=== PATIENT | female | born 1980 | race Caucasian/White ===

== ENCOUNTER 2016-10-22 11:55 | Inpatient (IN) | payer OTHER ==
[~2016-10-22] VITALS: Ht 165.1 cm; Wt 82.4 kg
[~2016-10-22 11:55] MED LIST: CEPH-443 PO; FERR240T9; PREN1TAB49
[2016-10-22 14:00] VITALS: Ht 165.1 cm; Wt 82.4 kg
[2016-10-22 14:12] VITALS: BP 116/65; RESP 18
[2016-10-22] MEDS ORDERED: NACL 0.9% 3 ML SYG IV SCH (15:00)
[2016-10-22] MEDS ORDERED: ACETAMINOPHEN 650 MG SUPP PR PRN (15:00)
[2016-10-22] MEDS ORDERED: DOCUSATE SODIUM 100 MG CAP PO PRN (15:00)
[2016-10-22] MEDS ORDERED: ACETAMINOPHEN 325 MG TAB PO PRN (15:00)
[2016-10-22] MEDS: CEFAZOLIN 1 GM/50 ML (PMX) 50 ML IVPB SCH ×2 (15:34→23:40)
[2016-10-22] MEDS: D5W-0.45 NACL + KCL 20 MEQ 1,000 ML IV SCH (15:34)
[2016-10-22] MEDS: CIPROFLOXACIN 400MG/D5W 200 ML IVPB SCH (16:45)
--- NOTE | 2016-10-22 17:21 | HP ---
DATE OF ADMISSION: 10/22/2016 PLUMBING MANAGER: General surgery. CHIEF COMPLAINT: Abdominal pain. HISTORY OF PRESENT ILLNESS: This is a pleasant 36-year-old female with past medical history of chol elithiasis 15 years ago. He had an ERCP with removal of a stone. He does not have any abdominal di scomfort or pain since then, although recently patient has been having abdominal discomfort. She re cently gave to a healthy baby 2 months ago and since then has been having abdominal discomfort since then with exacerbation of abdominal pain for the past 3 to 4 days. Therefore she was seen an d evaluated at [facility] Emergency Room secondary to having right upper quadrant abd ominal pain radiating to her back. The patient feels the pain is very similar to the pain that she has had in the past. She denies having any fever, chills, weight gain or weight loss. Positive for anorexia, vomiting, no diarrhea. No recent travel history. No sick contact. The patient has take n home pain medication which has been unhelpful. Denies any dysuria, hematuria, urgency, incontinen ce. No flank pain or any other discomfort. During the course of the emergency room at [place], abdominal ultrasound was obtained, which demonstrated cholelithiasis with mild gallbladder wall thic kening. Common bile duct upper limits of normal for patient's imaging of 5.6 mm in diameter. Her l abs demonstrate WBC 5.7. LFTs are planned. AST of 80, ALT 141, alkaline phosphatase 82, lipase is normal at 49. The patient was treated with pain medication, IV fluids, Zosyn. Secondary to insuran ce purposes, the patient was transferred to [facility]. At this time, the patien t continues to complain of abdominal discomfort and right upper quadrant nausea. There is no vomiti ng. The patient states that she has not been able to tolerate any food for the past 3 days. PAST MEDICAL AND SURGICAL HISTORY: 1. Cholelithiasis. 2. Choledocholithiasis. 3. Status post endoscopic retrograde cholangiopancreatography 15 years ago. MEDICATIONS: 1. Keflex. 2. Ferrous gluconate. 3. vitamins. ALLERGIES: NO KNOWN DRUG ALLERGIES. FAMILY HISTORY: Noncontributory. SOCIAL HISTORY: Negative x3 for smoking, alcohol, illicit drugs. REVIEW OF SYSTEMS: As above per HPI, otherwise 12 review of systems has been found to be negative. PHYSICAL EXAMINATION: VITAL SIGNS: Temperature 98.5, pulse 71, respiration 18, blood pressure 106/65, oxygen 95% in room air. GENERAL APPEARANCE: The patient is lying in bed comfortably without any distress. She is awake, al ert, oriented. She is able to answer my questions properly. EYES AND ENT: Conjunctivae and lids are normal. Pupils are normal. Extraocular normal. Hearing g rossly normal. Pupils are normal. Oral mucosa is dry. NECK: Supple. Trachea is midline. No lymphadenopathy. RESPIRATORY: Effort is normal. Clear to auscultation bilaterally. CARDIOVASCULAR: Normal S1, S2. Regular rhythm and rate. No murmur, no bruits, no edema. Peripher al pulses and palpable. Capillary refill is normal. CHEST: Normal expansion of thorax during inspiration. GASTROINTESTINAL: Abdomen is soft. Tenderness in the midepigastric and right upper quadrant, posit crystal rebound, no guarding, no rebound tenderness. Positive for Quach sign. NEUROLOGIC: Cranial nerves II through XII are grossly intact. PSYCHIATRIC: Normal judgment and insight. Alert and oriented x3. Mood and affect is normal. LABORATORY WORK AND IMAGING: Negative for protein, ketones, bilirubin, glucose. BMP showed sodium 140, potassium 4.4, chloride 103, bicarbonate 23, BUN 17, creatinine 0.65, glucose 98. Total protei n 7.5, albumin 4.0, calcium 8.9, total bilirubin 0.4, alkaline phosphatase 82, AST 80, ALT 141, GFR greater than 60. Lipase 49. WBC 5.7, hemoglobin 10.8, hematocrit 38, platelets 192. Abdominal ult rasound showed cholelithiasis with mild gallbladder wall thickening in the common bile duct in upper limit, normal for patient's age measure 5.6 cm in diameter. ASSESSMENT AND PLAN: 1. Cholelithiasis with evidence of cholecystitis with a positive Quach sign. General surgery james s been consulted. Patient has been made n.p.o., IV fluid, pain medication and antiemetic medication has been initiated. Will follow up LFTs in a.m. and follow general surgery recommendation for poss ible laparoscopic open cholecystectomy. 2. Transaminitis negative. Lipase is likely secondary to cholelithiasis. At this time, will obtai n stat LFTs secondary to the patient's abdominal ultrasound of the upper limits, common bile duct. Will follow general surgery recommendations. 3. For deep venous thrombosis prophylaxis, on sequential compression devices. 4. For gastrointestinal prophylaxis, Pepcid. We will continue to monitor patient closely. Further recommendations, management and treatment as p er clinical course. Total amount of time was spent for evaluation of patient and admission workup 40 minutes. Dictated By: NOEL HWANG/NTS Conf#: [id number] DID#: [id number]
[2016-10-22 20:04] VITALS: BP 120/75; RESP 20
[2016-10-22] MEDS: ONDANSETRON 4 MG INJ IV PRN (21:01)
[2016-10-22] MEDS: morphine 2 MG INJ IV PRN (21:01)
[2016-10-22 22:08] VITALS: BP 161/92; RESP 20
[2016-10-23] VITALS (15 sets, daily range): BP systolic 118–162; BP diastolic 63–82; PULSE 60–80; RESP 12–20
[2016-10-23] MEDS: D5W-0.45 NACL + KCL 20 MEQ 1,000 ML IV SCH ×2 (04:10→10:11)
[2016-10-23] MEDS: CIPROFLOXACIN 400MG/D5W 200 ML IVPB SCH ×3 (04:31→18:50)
[2016-10-23 05:53] LABS: BASOPHILS % 0.4 % (0.0-2.0); EOSINOPHILS # 0.1 10^3/ul (0.0-0.5); EOSINOPHILS % 1.7 % (0.0-7.0); HEMATOCRIT 34.2 % (37.0-47.0); HEMOGLOBIN 11.6 g/dl (12.0-16.0); LYMPHOCYTES # 1.2 10^3/ul (0.8-2.9); MEAN CORPUSCULAR HEMOGLOBIN 28.8 pg (29.0-33.0); MEAN CORPUSCULAR HGB CONC 34.1 g/dl (32.0-37.0); MEAN CORPUSCULAR VOLUME 84.4 fl (82.0-101.0); MEAN PLATELET VOLUME 8.9 fl (7.4-10.4); MONOCYTE # 0.2 10^3/ul (0.3-0.9); MONOCYTES % 6.7 % (0.0-11.0); NEUTROPHIL # 1.9 10^3/ul (1.6-7.5); NEUTROPHILS % 56.2 % (39.0-77.0); PLATELET COUNT 167 10^3/UL (140-440); RED BLOOD COUNT 4.04 10^6/ul (4.20-5.40); RED CELL DISTRIBUTION WIDTH 13.9 % (11.5-14.5); UNCORRECTED WBC 3.4 10^3/ul (4.8-10.8); WHITE BLOOD COUNT 3.4 10^3/ul (4.8-10.8)
[2016-10-23 05:57] LABS: CONDITION 1
[2016-10-23 06:08] LABS: ALBUMIN 3.6 g/dl (3.3-4.9)
[2016-10-23 06:09] LABS: POTASSIUM 4.3 mmol/L (3.5-5.1)
[2016-10-23 06:11] LABS: CREATININE 0.63 mg/dl (0.44-1.00)
[2016-10-23 06:12] LABS: ALBUMIN/GLOBULIN RATIO 1.12; BILIRUBIN,INDIRECT 0.4 mg/dl (0-1.1); BILIRUBIN,TOTAL 0.4 mg/dl (0.2-1.3); CALCIUM 8.4 mg/dl (8.4-10.2); TOTAL PROTEIN 6.8 g/dl (6.1-8.1)
[2016-10-23 06:13] LABS: MAGNESIUM 1.9 mg/dl (1.7-2.5)
[2016-10-23] MEDS: CEFAZOLIN 1 GM/50 ML (PMX) 50 ML IVPB SCH ×3 (06:39→22:16)
[2016-10-23] MEDS: PANTOPRAZOLE 40 MG INJ IV SCH (06:39)
[2016-10-23] MEDS: morphine 2 MG INJ IV PRN ×3 (07:00→21:49)
[2016-10-23] MEDS: ONDANSETRON 4 MG INJ IV PRN ×4 (07:00→21:49)
--- NOTE | 2016-10-23 11:31 | PN ---
Date/Time of Note Date/Time of Note DATE: 10/23/16 TIME: 11:23 Assessment/Plan VTE Prophylaxis VTE Prophylaxis Intervention: SCD's Lines/Catheters IV Catheter Type (from Nrsg): Peripheral IV Assessment/Plan Assessment/Plan 1. Cholelithiasis with evidence of cholecystitis with a positive Quach sign. Dr. Montero for lap cholecystectomy today 2. Transaminitis, mildly, normal Alk phos, follow up with LFTs 3. For deep venous thrombosis prophylaxis, on sequential compression devices. 4. For gastrointestinal prophylaxis, protonix Subjective 24 Hr Interval Summary Free Text/Dictation less abdominal pain today, nausea but no vomiting Exam/Review of Systems Vital Signs Vitals Vital Signs Date Time Temp Pulse Resp B/P Pulse Ox O2 Delivery O2 Flow Rate FiO2 10/23/16 07:53 98.2 65 18 122/68 96 Intake and Output 10/22/16 10/22/16 10/23/16 15:00 23:00 07:00 Intake Total 250 ml 850 ml Balance 250 ml 850 ml Exam Constitutional: alert, oriented, well developed Psych: nl mood/affect, no complaints Head: atraumatic, normocephalic Eyes: EOMI, PERRL, nl conjunctiva, nl lids, nl sclera ENMT: nl external ears & nose, nl lips & teeth, nl nasal mucosa & septum Neck: non-tender, supple Respiratory: clear to auscultation, normal air movement Cardiovascular: nl pulses, regular rate and rhythm Gastrointestinal: nl liver, spleen, other (right upper and epigastric tenderness), soft Musculoskeletal: nl extremities to inspection, nl gait and stance Extremities: normal pulses Neurological: [employer] SALES ASSESSOR II-XII intact, nl mental status, nl speech, nl strength Skin: nl turgor, rash or lesions Lymph: nl lymph nodes Results Result Diagram: 10/23/1652510/23/16 0526 Results 24 hrs Laboratory Tests Test 10/23/16 05:26 Alanine Aminotransferase (ALT/SGPT) 144 H Albumin 3.6 Albumin/Globulin Ratio 1.12 Alkaline Phosphatase 69 Anion Gap 11 Aspartate Amino Transf (AST/SGOT) 87 H Basophils # 0.0 Basophils % 0.4 Blood Morphology Comment Blood Urea Nitrogen 7 Calcium Level 8.4 Carbon Dioxide Level 28 Chloride Level 105 Cholesterol Level 191 Cholesterol/HDL Ratio 5.0 Creatinine 0.63 Direct Bilirubin 0.00 Eosinophils # 0.1 Eosinophils % 1.7 Globulin 3.20 Glucose Level 109 HDL Cholesterol 38 Hematocrit 34.2 #L Hemoglobin 11.6 #L Indirect Bilirubin 0.4 LDL Cholesterol, Calculated 121 Lymphocytes # 1.2 Lymphocytes % 35.0 Magnesium Level 1.9 Mean Corpuscular Hemoglobin 28.8 L Mean Corpuscular Hemoglobin Concent 34.1 Mean Corpuscular Volume 84.4 Mean Platelet Volume 8.9 Monocytes # 0.2 L Monocytes % 6.7 Neutrophils # 1.9 Neutrophils % 56.2 Nucleated Red Blood Cells # 0.0 Nucleated Red Blood Cells % 0.0 Platelet Count 167 # Potassium Level 4.3 Red Blood Count 4.04 #L Red Cell Distribution Width 13.9 Sodium Level 140 Total Bilirubin 0.4 Total Protein 6.8 Triglycerides Level 160 H White Blood Count 3.4 #L Medications Medications Current Medications Potassium Chloride/Dextrose/ Sod Cl (D5-1/2ns + KCl 20 Meq) 1,000 ml @ 75 mls/ hr [id number] IV Last administered on 10/23/16 10:11; Admin Dose 75 MLS/HR; Start 10/22/16 at 14:50 Ondansetron HCl (Zofran Inj) 4 mg Q6H PRN IV NAUSEA AND/OR VOMITING Last administered on 10/23/16 07:00; Admin Dose 4 MG; Start 10/22/16 at 15:00 Acetaminophen (Tylenol Tab) 650 mg Q6H PRN PO PAIN LEVEL 1-3 OR FEVER Last administered on 10/22/16 15:35; Admin Dose 650 MG; Start 10/22/16 at 15:00 Acetaminophen (Tylenol Supp) 650 mg Q6H PRN [place] PAIN LEVEL 1-3 OR FEVER; Start 10/22/16 at 15:00 Morphine Sulfate (morphine) 2 mg Q4H PRN IV SEVERE PAIN LEVEL 7-10 Last administered on 10/23/16 07:00; Admin Dose 2 MG; Start 10/22/16 at 15:00 Docusate Sodium (Colace) 100 mg Q12H PRN PO CONSTIPATION; Start 10/22/16 at 15: 00 Pantoprazole 40 mg 40 mg DAILY@06 IV Last administered on 10/23/16 06:39; Admin Dose 40 MG; Start 10/23/16 at 06:00 Cefazolin Sodium 50 ml @ 100 mls/hr Q8 IVPB Last administered on 10/23/16 06: 39; Admin Dose 100 MLS/HR; Start 10/22/16 at 15:30 Ciprofloxacin/ Dextrose (Cipro Ivpb) 200 ml @ 200 mls/hr Q12H IVPB Last administered on 10/23/16 04:31; Admin Dose 200 MLS/HR; Start 10/22/16 at 16:00 REBECA ARCE MD Oct 23, 2016 11:31
[2016-10-23] MEDS ORDERED: FENTAnyl 50 MCG/ML VIAL IV PRN (15:30)
[2016-10-23] MEDS ORDERED: DIPHENHYDRAMINE 50 MG INJ IV PRN (15:30)
[2016-10-23] MEDS ORDERED: MEPERIDINE 25 MG INJ IV PRN (15:30)
[2016-10-23] MEDS ORDERED: HYDROmorphONE (0.2 MG/ML) 10ML SYG IV PRN ×3 (15:30)
[2016-10-23] MEDS ORDERED: PROCHLORPERAZINE 10 MG INJ IV PRN (15:30)
[2016-10-23] MEDS ORDERED: ONDANSETRON 4 MG INJ IV PRN (15:30)
[2016-10-23] MEDS ORDERED: BUPIVACAINE 0.25%/EPI (SDV) 30 ML INJ ONE (15:52)
[2016-10-23] MEDS ORDERED: LIDOCAINE 1% (STERILE-PAK) 30 ML INJ ONE (15:52)
[2016-10-23] MEDS ORDERED: PROPOFOL 20 ML ONE ×2 (16:30→16:50)
[2016-10-23] MEDS ORDERED: LIDOCAINE 2% (SDV) 5 ML INJ ONE (16:30)
[2016-10-23] MEDS ORDERED: MIDAZOLAM 1 MG/ML 2 ML INJ ONE (16:30)
[2016-10-23] MEDS ORDERED: FENTAnyl 50 MCG/ML VIAL ONE (16:30)
[2016-10-23] MEDS ORDERED: SUCCINYLCHOLINE CHLORIDE 100 MG/5 ML SYG IV ONE (16:30)
[2016-10-23] MEDS ORDERED: ROCURONIUM 50 MG INJ ONE (16:30)
[2016-10-23] MEDS ORDERED: CEFAZOLIN 1 GM INJ ONE (16:47)
[2016-10-23] MEDS ORDERED: GLYCOPYRROLATE 0.4 MG INJ ONE (16:49)
[2016-10-23] MEDS ORDERED: NEOSTIGMINE 3 MG/3 ML SYRINGE ONE (16:49)
[2016-10-23] MEDS ORDERED: DEXAMETHASONE 4 MG/ML 1 ML INJ ONE (16:50)
[2016-10-23] MEDS ORDERED: HYDROmorphONE 2 MG/ML SYG ONE (16:50)
[2016-10-23] MEDS ORDERED: ONDANSETRON 4 MG INJ ONE (16:50)
[2016-10-23] MEDS ORDERED: FAMOTIDINE 20 MG INJ ONE (16:50)
[2016-10-23] MEDS ORDERED: EPHEDrine SULFATE 50 MG/5 ML SYG ONE (16:55)
--- NOTE | 2016-10-23 17:24 | CONS ---
DATE OF ADMISSION: 10/22/2016 DATE OF CONSULTATION: 10/23/2016 HISTORY OF PRESENT ILLNESS: Mr. Pang is a 36-year-old female who presented to an outside hospit al yesterday with nausea, emesis and abdominal pain for 2 days. She has had prior episodes of bilia ry colic, which have improved on their own. This was more severe with the most pain and also with n o improvement after 2 days. She did have an ERCP for common bile duct stone 15 years ago. The ultr asound was concerning for cholecystitis and she was transferred to [facility]. PAST MEDICAL HISTORY: Cholelithiasis, choledocholithiasis, status post ERCP. MEDICATIONS: None. ALLERGIES: NO KNOWN DRUG ALLERGIES. SOCIAL HISTORY: She smokes. She denies drinking. PAST SURGICAL HISTORY: Noncontributory. PHYSICAL EXAMINATION: GENERAL: She is a well-nourished, well-developed female in no apparent distress, currently afebrile . VITAL SIGNS: Stable. CHEST: Clear to auscultation bilaterally. HEART: Regular rhythm. ABDOMEN: Soft, nondistended but some right upper quadrant tenderness. LABORATORY DATA: Today reveal a white count of 3, hematocrit 34, platelets 167. Sodium 140, potass ium 4.3, chloride 105, CO2 28, BUN and creatinine 7 and 0.6, glucose of 109. LFTs are within normal limits. An outside ultrasound was consistent with cholelithiasis and cholecystitis. ASSESSMENT AND PLAN: Ms. Pang is a 36-year-old female with biliary colic versus cholecystitis. I discussed proceeding with a laparoscopic, possible open cholecystectomy, possible cholangiogram o n this admission. All benefits, risks, alternatives were discussed in detail. Questions answered. Patient elects to proceed. Dictated By: SAUL KELLY/HANY Conf#: [id number] DID#: [id number]
[2016-10-23] MEDS: D5-NS + KCL 20 MEQ 1,000 ML IV SCH ×2 (17:31→18:50)
[2016-10-23] MEDS ORDERED: IBUPROFEN 600 MG TAB PO PRN (18:00)
[2016-10-23] MEDS ORDERED: KETOROLAC 30 MG INJ IV ONE (18:00)
[2016-10-23] MEDS: KETOROLAC 15 MG INJ IV SCH ×2 (18:00→23:15)
[2016-10-23] MEDS ORDERED: ACETAMINOPHEN 325 MG TAB PO PRN (18:00)
[2016-10-23] MEDS ORDERED: morphine 2 MG INJ IV PRN (18:00)
--- NOTE | 2016-10-23 18:07 | OPR ---
DATE OF OPERATION: 10/23/2016 PREOPERATIVE DIAGNOSIS: Acute cholecystitis. POSTOPERATIVE DIAGNOSIS: Acute cholecystitis. PROCEDURE PERFORMED: Laparoscopic cholecystectomy. SURGEON: Saul Vuong MD BRAZER ELECTRONIC: None. ANESTHESIA: General endotracheal. ANESTHESIOLOGIST: Dr. Kent ESTIMATED BLOOD LOSS: Minimal. COMPLICATIONS: None. SPECIMENS: Gallbladder. FINDINGS: Thickened gallbladder with very large stone. INDICATIONS: Ms. Pang is a 36-year-old female who has had intermittent biliary colic on and off for quite some time. She presented to [facility] with signs and symptoms consistent with acute cholecystitis. I discussed proceeding with a laparoscopic, possible open cholecystectomy, pos sible cholangiogram. The patient agreed. We discussed All benefits, risks, alternatives were discu ssed in detail, questions answered. The patient elected to proceed. DESCRIPTION OF PROCEDURE: Patient was brought to the operative room and placed supine on the table. After preop antibiotics and SCDs were placed, the patient was intubated and the abdomen was cleane d, prepped and draped in usual sterile fashion. All incisions were infiltrated with 1% lidocaine wi th epinephrine and 0.5% Marcaine prior to incision. An 11 mm incision was made in the umbilicus. U sing a 5 mm laparoscope containing trocar, the abdomen was entered under direct vision and insufflat ed to 15 mmHg and CO2. The following trocars were then placed under direct vision: right lower rosalinda drant 5 mm with a right upper quadrant 5 mm and subxiphoid 5 mm trocar. The gallbladder was distend ed and edematous, consistent with acute cholecystitis. There was a very large stone in the fundus. I was able to identify the Babak's pouch and retract it laterally. I scored the peritoneum medi ally and laterally underneath Babak's pouch and was able to dissect out and skeletonize the cysti c duct and artery. I then dissected the gallbladder off the cystic plate of the liver and thus had my critical view of safety ____liver edge duct and artery with no intervening structures. I clipped both the duct and artery twice proximally and once distally individually and divided the cystic maurizio t and cystic artery. The gallbladder was then removed from the gallbladder fossa with electrocauter y, placed in an EndoCatch bag and removed from the 12 mm trocar site. I visualized my gallbladder f aurelia. I irrigated and aspirated until effluent was clear. The gallbladder fossa was hemostatic. A t this point, I removed all trocars and desufflated the abdomen. The fascia of the 12 mm trocar sit e was closed with a running 0 Vicryl. Skin incisions were closed with 4-0 Monocryl, Mastisol and St sebas-Strips, 2 x 2 gauze and Tegaderm was placed over the umbilical incision only. The patient sugar ated procedure well, was extubated in the OR and transferred to recovery room in stable condition. Dictated By: SAUL KELLY/HANY Conf#: [id number] DID#: [id number]
[2016-10-23] MEDS: PIPER-TAZO 3.375 GM IV (PMX) 100 ML IVPB SCH ×2 (21:40→23:15)
[2016-10-24] MEDS: morphine 2 MG INJ IV PRN ×2 (01:33→06:59)
[2016-10-24] MEDS: CIPROFLOXACIN 400MG/D5W 200 ML IVPB SCH (04:35)
[2016-10-24] MEDS: D5-NS + KCL 20 MEQ 1,000 ML IV SCH ×4 (04:37→23:31)
[2016-10-24] MEDS: PANTOPRAZOLE 40 MG INJ IV SCH (05:58)
[2016-10-24] MEDS: KETOROLAC 15 MG INJ IV SCH ×3 (05:58→17:35)
[2016-10-24] MEDS: PIPER-TAZO 3.375 GM IV (PMX) 100 ML IVPB SCH ×3 (05:58→17:36)
[2016-10-24] MEDS: CEFAZOLIN 1 GM/50 ML (PMX) 50 ML IVPB SCH (06:37)
[2016-10-24 06:48] LABS: HEMATOCRIT 31.4 % (37.0-47.0); HEMOGLOBIN 10.8 g/dl (12.0-16.0); LYMPHOCYTES # 0.7 10^3/ul (0.8-2.9); LYMPHOCYTES % 10.4 % (15.0-51.0); MEAN CORPUSCULAR HGB CONC 34.3 g/dl (32.0-37.0); MEAN CORPUSCULAR VOLUME 84.5 fl (82.0-101.0); MEAN PLATELET VOLUME 9.4 fl (7.4-10.4); MONOCYTE # 0.4 10^3/ul (0.3-0.9); MONOCYTES % 5.9 % (0.0-11.0); NEUTROPHIL # 5.3 10^3/ul (1.6-7.5); NEUTROPHILS % 83.7 % (39.0-77.0); PLATELET COUNT 171 10^3/UL (140-440); RED BLOOD COUNT 3.72 10^6/ul (4.20-5.40); RED CELL DISTRIBUTION WIDTH 13.7 % (11.5-14.5); UNCORRECTED WBC 6.3 10^3/ul (4.8-10.8); WHITE BLOOD COUNT 6.3 10^3/ul (4.8-10.8)
[2016-10-24 06:56] LABS: ALBUMIN 3.5 g/dl (3.3-4.9)
[2016-10-24 06:58] LABS: CONDITION 1
[2016-10-24 06:59] LABS: ALBUMIN/GLOBULIN RATIO 1.12; BILIRUBIN,INDIRECT 0.3 mg/dl (0-1.1); BILIRUBIN,TOTAL 0.3 mg/dl (0.2-1.3); CREATININE 0.6 mg/dl (0.44-1.00); TOTAL PROTEIN 6.6 g/dl (6.1-8.1)
[2016-10-24 07:00] LABS: CALCIUM 8.4 mg/dl (8.4-10.2)
[2016-10-24 08:03] VITALS: BP 121/58; RESP 16
[2016-10-24] MEDS: ENOXAPARIN 40 MG/0.4 ML SYG SC SCH (08:28)
[2016-10-24] MEDS: OXYCODONE/ACETAMINOPHEN (5/325) TAB PO PRN ×2 (08:32→18:53)
--- NOTE | 2016-10-24 12:44 | DS ---
Date/Time of Note Date/Time of Note DATE: 10/24/16 TIME: 12:40 Discharge Summary Admission/Discharge Info Admit Date/Time Oct 22, 2016 at 13:44 Discharge Date/Time Final Diagnosis 1. Cholelithiasis with acute cholecystitis, stable , follow up with Dr. Montero Patient Condition: Stable Procedures lap cholecystectomy Hx of Present Illness This is a pleasant 36-year-old female with past medical history of cholelithiasis 15 years ago. He had an ERCP with removal of a stone. He does not have any abdominal discomfort or pain since then, although recently patient has been having abdominal discomfort. She recently gave to a healthy baby 2 months ago and since then has been having abdominal discomfort since then with exacerbation of abdominal pain for the past 3 to 4 days. Therefore she was seen and evaluated at [facility] Emergency Room secondary to having right upper quadrant abdominal pain radiating to her back. The patient feels the pain is very similar to the pain that she has had in the past. She denies having any fever, chills, weight gain or weight loss. Positive for anorexia, vomiting, no diarrhea. No recent travel history. No sick contact. The patient has taken home pain medication which has been unhelpful. Denies any dysuria, hematuria, urgency, incontinence. No flank pain or any other discomfort. During the course of the emergency room at [place], abdominal ultrasound was obtained, which demonstrated cholelithiasis with mild gallbladder wall thickening. Common bile duct upper limits of normal for patient's imaging of 5.6 mm in diameter. Her labs demonstrate WBC 5.7. LFTs are planned. AST of 80, ALT 141, alkaline phosphatase 82, lipase is normal at 49. The patient was treated with pain medication, IV fluids, Zosyn. Secondary to insurance purposes, the patient was transferred to [facility]. At this time, the patient continues to complain of abdominal discomfort and right upper quadrant nausea. There is no vomiting. The patient states that she has not been able to tolerate any food for the past 3 days. Hospital Course Physical exam with RAUQ abdominal tenderness. Patient was treated with antibiotics and got lap cholecystectomy on 10/23/2016. Patient tolerates diet. She will follow up with surgery in his office, in one week. Home Meds Reported Medications Cephalexin* (Keflex*) 500 Mg Capsule, 500 MG PO BID, #14 CAP 7/15/16 Ferrous Gluconate (Iron) 1 Tab Tablet 11/14/10 Vits W-Ca,Fe,Fa(<1MG) () 1 Tab Tablet 11/14/10 Follow-up Plan Dr. Vuong one week Pending Labs Laboratory Tests Test 10/24/16 05:30 Alanine Aminotransferase (ALT/SGPT) 142IU/L (13-69) Albumin 3.5g/dl (3.3-4.9) Albumin/Globulin Ratio 1.12 Alkaline Phosphatase 68IU/L (42-121) Anion Gap 14 (8-16) Aspartate Amino Transf (AST/SGOT) 113IU/L (15-46) Basophils # 0.010^3/ul (0.0-0.1) Basophils % 0.0% (0.0-2.0) Blood Morphology Comment Blood Urea Nitrogen 8mg/dl (7-20) Calcium Level 8.4mg/dl (8.4-10.2) Carbon Dioxide Level 25mmol/L (21-31) Chloride Level 106mmol/L (97-110) Creatinine 0.60mg/dl (0.44-1.00) Direct Bilirubin 0.00mg/dl (0.00-0.20) Eosinophils # 0.010^3/ul (0.0-0.5) Eosinophils % 0.0% (0.0-7.0) Globulin 3.10g/dl (1.3-3.2) Glucose Level 131mg/dl (70-220) Hematocrit 31.4% (37.0-47.0) Hemoglobin 10.8g/dl (12.0-16.0) Indirect Bilirubin 0.3mg/dl (0-1.1) Lymphocytes # 0.710^3/ul (0.8-2.9) Lymphocytes % 10.4% (15.0-51.0) Mean Corpuscular Hemoglobin 29.0pg (29.0-33.0) Mean Corpuscular Hemoglobin Concent 34.3g/dl (32.0-37.0) Mean Corpuscular Volume 84.5fl (82.0-101.0) Mean Platelet Volume 9.4fl (7.4-10.4) Monocytes # 0.410^3/ul (0.3-0.9) Monocytes % 5.9% (0.0-11.0) Neutrophils # 5.310^3/ul (1.6-7.5) Neutrophils % 83.7% (39.0-77.0) Nucleated Red Blood Cells # 0.010^3/ul (0.0-0.0) Nucleated Red Blood Cells % 0.0/100WBC (0.0-0.0) Platelet Count 60620^3/UL (140-440) Potassium Level 4.0mmol/L (3.5-5.1) Red Blood Count 3.7210^6/ul (4.20-5.40) Red Cell Distribution Width 13.7% (11.5-14.5) Sodium Level 141mmol/L (135-144) Total Bilirubin 0.3mg/dl (0.2-1.3) Total Protein 6.6g/dl (6.1-8.1) White Blood Count 6.310^3/ul (4.8-10.8) REBECA ARCE MD Oct 24, 2016 12:44
[2016-10-24] MEDS ORDERED: HYDR-3498 PO (12:46)
[2016-10-24] MEDS: HYDROCODONE/APAP (5/325) TAB PO PRN (16:27)
[2016-10-24 19:00] VITALS: BP 144/79; RESP 18
[2016-10-25] MEDS: PIPER-TAZO 3.375 GM IV (PMX) 100 ML IVPB SCH ×3 (00:01→13:11)
[2016-10-25] MEDS: KETOROLAC 15 MG INJ IV SCH ×3 (00:01→13:10)
[2016-10-25] MEDS: D5-NS + KCL 20 MEQ 1,000 ML IV SCH (05:55)
[2016-10-25] MEDS: PANTOPRAZOLE 40 MG INJ IV SCH (05:56)
[2016-10-25] MEDS: OXYCODONE/ACETAMINOPHEN (5/325) TAB PO PRN (06:05)
[2016-10-25] MEDS: ENOXAPARIN 40 MG/0.4 ML SYG SC SCH (06:13)
[2016-10-25 07:42] VITALS: BP 136/73; RESP 18
[2016-10-25] MEDS: morphine 2 MG INJ IV PRN (10:56)
--- NOTE | 2016-10-25 12:06 | DS ---
Date/Time of Note Date/Time of Note DATE: 10/25/16 TIME: 12:02 Discharge Summary Admission/Discharge Info Admit Date/Time Oct 22, 2016 at 13:44 Discharge Date/Time Final Diagnosis 1. Cholelithiasis with acute cholecystitis, stable , follow up with Dr. Montero Patient Condition: Stable Procedures lap cholecystectomy Hx of Present Illness This is a pleasant 36-year-old female with past medical history of cholelithiasis 15 years ago. He had an ERCP with removal of a stone. He does not have any abdominal discomfort or pain since then, although recently patient has been having abdominal discomfort. She recently gave to a healthy baby 2 months ago and since then has been having abdominal discomfort since then with exacerbation of abdominal pain for the past 3 to 4 days. Therefore she was seen and evaluated at [facility] Emergency Room secondary to having right upper quadrant abdominal pain radiating to her back. The patient feels the pain is very similar to the pain that she has had in the past. She denies having any fever, chills, weight gain or weight loss. Positive for anorexia, vomiting, no diarrhea. No recent travel history. No sick contact. The patient has taken home pain medication which has been unhelpful. Denies any dysuria, hematuria, urgency, incontinence. No flank pain or any other discomfort. During the course of the emergency room at [place], abdominal ultrasound was obtained, which demonstrated cholelithiasis with mild gallbladder wall thickening. Common bile duct upper limits of normal for patient's imaging of 5.6 mm in diameter. Her labs demonstrate WBC 5.7. LFTs are planned. AST of 80, ALT 141, alkaline phosphatase 82, lipase is normal at 49. The patient was treated with pain medication, IV fluids, Zosyn. Secondary to insurance purposes, the patient was transferred to [facility]. At this time, the patient continues to complain of abdominal discomfort and right upper quadrant nausea. There is no vomiting. The patient states that she has not been able to tolerate any food for the past 3 days. Hospital Course Physical exam with RAUQ abdominal tenderness. Patient was treated with antibiotics and got lap cholecystectomy on 10/23/2016. Patient tolerates diet. She will follow up with surgery in his office, in one week. Patient was discharged on 10/24/2016, but she complained lots of abdominal pain yesterday that is better today. Home Meds Active Scripts Hydrocodone Bit-Acetaminophen (Hydrocodone Bit-APAP) 5-325MG Tablet, 1 TAB PO Q6H Y for PAIN LEVEL 6-10, #25 TAB Prov:REBECA ARCE MD 10/24/16 Reported Medications Ferrous Gluconate (Iron) 1 Tab Tablet 11/14/10 Vits W-Ca,Fe,Fa(<1MG) () 1 Tab Tablet 11/14/10 Discontinued Reported Medications Cephalexin* (Keflex*) 500 Mg Capsule, 500 MG PO BID, #14 CAP 04/26/16 Follow-up Plan Dr. Vuong in one week REBECA ARCE MD Oct 25, 2016 12:05
[2016-10-25] MEDS: METOCLOPRAMIDE 5 MG TAB PO SCH ×2 (13:10→16:56)
[2016-10-25] MEDS: HYDROCODONE/APAP (5/325) TAB PO PRN (16:56)
[2016-10-25] MEDS: ONDANSETRON 4 MG INJ IV PRN (16:56)
== END 2016-10-25 19:00 | disposition home or self-care (01) | DRG 419 ==
LOC: MS2 13:44
PROVIDERS: ADMIT Family Medicine; ATTEND Family Medicine
PROC: 0FT44ZZ Resection of Gallbladder, Percutaneous Endoscopic Approach (ICD-10-PCS; principal; 2016-10-23 16:00)
DX: K80.00 Calculus of gallbladder with acute cholecystitis without obstruction (principal); R74.0 Nonspecific elevation of levels of transaminase and lactic acid dehydrogenase [LDH]
CPT/HCPCS: 80053; 80061; 83735; 85025; 88304; C9113; J0330; J0690; J0744; J1100; J1170; J1650; J1885; J2250; J2270; J2405; J2543; J2710; J3010; J3480

== ENCOUNTER 2016-11-02 22:58 | Inpatient (IN) | payer OTHER ==
[~2016-11-02] VITALS: Ht 165.1 cm; Wt 81.3 kg
[~2016-11-02 22:58] MED LIST changes: -CEPH-443 PO; +HYDR-3498 PO
[2016-11-02] MEDS ORDERED: ONDANSETRON 4 MG INJ IV STA (23:38)
[2016-11-02] MEDS ORDERED: morphine 4 MG/ML VIAL IV STA (23:38)
[2016-11-03 00:06] LABS: ALBUMIN 4.2 g/dl (3.3-4.9)
[2016-11-03 00:07] LABS: POTASSIUM 4.8 mmol/L (3.5-5.1)
[2016-11-03 00:09] LABS: BILIRUBIN,INDIRECT 0.1 mg/dl (0-1.1); BILIRUBIN,TOTAL 0.1 mg/dl (0.2-1.3); CREATININE 0.63 mg/dl (0.44-1.00)
[2016-11-03 00:10] LABS: ALBUMIN/GLOBULIN RATIO 1.13; CALCIUM 9.6 mg/dl (8.4-10.2); TOTAL PROTEIN 7.9 g/dl (6.1-8.1)
--- NOTE | 2016-11-03 00:49 | RADRPT ---
PROCEDURE: Chest. CLINICAL INDICATION: Chest pain. TECHNIQUE: Single frontal view of the chest was obtained. COMPARISON: None. FINDINGS: The cardiac silhouette is within normal limits. The aortic arch is unremarkable. There is no focal consolidation, vascular congestion or pleural effusion. There is no pneumothorax. IMPRESSION: No evidence for active cardiopulmonary disease. .Robbie Gordon MD, MD Date Time Electronically viewed and signed by .Robbie Gordon MD, on 11/03/2016 00:48 .T/
[2016-11-03 01:00] VITALS: TEMP 98.2
[2016-11-03] MEDS ORDERED: ONDANSETRON 4 MG INJ IV PRN (01:00)
[2016-11-03] MEDS ORDERED: ACETAMINOPHEN 325 MG TAB PO PRN (01:00)
[2016-11-03 01:01] LABS: BASOPHILS % 0.5 % (0.0-2.0); EOSINOPHILS # 0.1 10^3/ul (0.0-0.5); HEMATOCRIT 36.5 % (37.0-47.0); HEMOGLOBIN 12.3 g/dl (12.0-16.0); LYMPHOCYTES # 1.6 10^3/ul (0.8-2.9); LYMPHOCYTES % 20.3 % (15.0-51.0); MEAN CORPUSCULAR HEMOGLOBIN 28.3 pg (29.0-33.0); MEAN CORPUSCULAR HGB CONC 33.6 g/dl (32.0-37.0); MEAN PLATELET VOLUME 9.4 fl (7.4-10.4); MONOCYTE # 0.5 10^3/ul (0.3-0.9); MONOCYTES % 5.8 % (0.0-11.0); NEUTROPHIL # 5.6 10^3/ul (1.6-7.5); NEUTROPHILS % 72.4 % (39.0-77.0); PLATELET COUNT 266 10^3/UL (140-440); RED BLOOD COUNT 4.34 10^6/ul (4.20-5.40); RED CELL DISTRIBUTION WIDTH 13.6 % (11.5-14.5); UNCORRECTED WBC 7.8 10^3/ul (4.8-10.8); WHITE BLOOD COUNT 7.8 10^3/ul (4.8-10.8)
[2016-11-03 01:07] LABS: CONDITION 1
[2016-11-03 02:05] VITALS: BP 115/66; RESP 16
[2016-11-03 02:12] VITALS: Ht 165.1 cm; Wt 81.3 kg
[2016-11-03] MEDS: DEXTROSE 5%-0.45% NACL 1,000 ML IV SCH ×3 (03:22→23:00)
--- NOTE | 2016-11-03 04:54 | ERA ---
ER Documentation Chief Complaint Date/Time DATE: 11/03/16 TIME: 04:53 Chief Complaint sp cholecystectomy 4 days ago, c/o upper abd pain x 3 days HPI 36-year-old female status post laparoscopic cholecystectomy 10/23/2016 by presenting with severe epigastric pain. Patient states that she has had pain since her surgery but not very severe. It was easily controlled with Percocet and ibuprofen. However yesterday, she suddenly got severe epigastric pain, aching and stabbing, nonradiating, associated with nausea but no vomiting. She has had some constipation since her surgery. No fevers, chills. ROS All systems reviewed and are negative except as per history of present illness. Medications Home Meds Active Scripts Hydrocodone Bit-Acetaminophen (Hydrocodone Bit-APAP) 5-325MG Tablet, 1 TAB PO Q6H Y for PAIN LEVEL 6-10, #25 TAB Prov:REBECA ARCE MD 10/24/16 Reported Medications Ferrous Gluconate (Iron) 1 Tab Tablet 11/14/10 Vits W-Ca,Fe,Fa(<1MG) () 1 Tab Tablet 11/14/10 Allergies Allergies: Coded Allergies: No Known Drug Allergies (Verified Allergy, Mild, 08/09/16) PMhx/Soc History of Surgery: Yes (cholecystectomy 10/2016) Anesthesia Reaction: No Hx Neurological Disorder: No Hx Respiratory Disorders: No Hx Cardiac Disorders: No Hx Psychiatric Problems: No Hx Miscellaneous Medical Probl: No Hx Alcohol Use: No Hx Substance Use: No Hx Tobacco Use: Yes (cigarettes 2 per day) Smoking Status: Current some day smoker FmHx Family History: No diabetes Physical Exam Vitals Vital Signs Date Time Temp Pulse Resp B/P Pulse Ox O2 Delivery O2 Flow Rate FiO2 11/02/16 23:02 98.2 74 20 152/95 100 Physical Exam Const: Hunched over in bed, unable to lay flat secondary to pain, in moderate distress secondary to pain, nontoxic Head: Atraumatic Eyes: Normal Conjunctiva ENT: Normal External Ears, Nose and Mouth. Neck: Full range of motion. No meningismus. Resp: Clear to auscultation bilaterally Cardio: Regular rate and rhythm, no murmurs Abd: Soft, moderately tender to palpation epigastrium, non distended. Normal bowel sounds Skin: No petechiae or rashes Back: No midline or flank tenderness Ext: No cyanosis, or edema Neur: Awake and alert Psych: Normal Mood and Affect Result Diagram: 11/02/16 8204 11/02/16 2354 Results 24 hrs Laboratory Tests Test 11/02/16 23:54 Alanine Aminotransferase (ALT/SGPT) 150IU/L Albumin 4.2g/dl Albumin/Globulin Ratio 1.13 Alkaline Phosphatase 171IU/L Anion Gap 20 Aspartate Amino Transf (AST/SGOT) 220IU/L Basophils # 0.010^3/ul Basophils % 0.5% Blood Morphology Comment Blood Urea Nitrogen 14mg/dl Calcium Level 9.6mg/dl Carbon Dioxide Level 29mmol/L Chloride Level 100mmol/L Creatinine 0.63mg/dl Direct Bilirubin 0.00mg/dl Eosinophils # 0.110^3/ul Eosinophils % 1.0% Globulin 3.70g/dl Glucose Level 95mg/dl Hematocrit 36.5% Hemoglobin 12.3g/dl Indirect Bilirubin 0.1mg/dl Lipase 233U/L Lymphocytes # 1.610^3/ul Lymphocytes % 20.3% Mean Corpuscular Hemoglobin 28.3pg Mean Corpuscular Hemoglobin Concent 33.6g/dl Mean Corpuscular Volume 84.0fl Mean Platelet Volume 9.4fl Monocytes # 0.510^3/ul Monocytes % 5.8% Neutrophils # 5.610^3/ul Neutrophils % 72.4% Nucleated Red Blood Cells # 0.010^3/ul Nucleated Red Blood Cells % 0.0/100WBC Platelet Count 89911^3/UL Potassium Level 4.8mmol/L Red Blood Count 4.3410^6/ul Red Cell Distribution Width 13.6% Sodium Level 144mmol/L Total Bilirubin 0.1mg/dl Total Protein 7.9g/dl White Blood Count 7.810^3/ul Current Medications Medications (Trade) Dose Ordered Sig/Marco Route PRN Reason Start Time Stop Time Status Last Admin Dose Admin Morphine Sulfate (morphine) 6 mg ONCE STAT IV 11/02/16 23:38 11/02/16 23:45 DC 11/02/16 23:49 Ondansetron HCl (Zofran Inj) 4 mg ONCE STAT IV 11/02/16 23:38 11/02/16 23:46 DC 11/02/16 23:51 Procedures/MDM Patient is presenting with abdominal pain status post laparoscopic cholecystectomy. She is afebrile and her vitals are stable. She has no signs of peritonitis on exam. I have a low suspicion for bowel perforation or acute obstruction. However I have a high suspicion for possible retained stone in the biliary ducts. Her labs were notable for transaminitis with normal bilirubin and lipase. I spoke with the patient's surgeon, who recommended admission to observation for MRCP to rule out retained biliary stone. Patient will be admitted to the hospital for further workup. Her pain was controlled with IV pain medications. Accepting Care Team: Current data and ongoing care discussed. Time: Time of admission Primary Provider: Cholo Consulting: Carolann with Gen Surg Outstanding Data: none Departure Diagnosis: Primary Impression: Postoperative complication Qualified Code: K91.89 - Other postoperative complication involving digestive system Condition: RAH Das MD Nov 03, 2016 04:54
[2016-11-03 05:43] LABS: BASOPHILS % 0.4 % (0.0-2.0); EOSINOPHILS % 1.1 % (0.0-7.0); HEMATOCRIT 32.4 % (37.0-47.0); LYMPHOCYTES # 1.3 10^3/ul (0.8-2.9); LYMPHOCYTES % 28.7 % (15.0-51.0); MEAN CORPUSCULAR HEMOGLOBIN 28.6 pg (29.0-33.0); MEAN CORPUSCULAR HGB CONC 33.9 g/dl (32.0-37.0); MEAN CORPUSCULAR VOLUME 84.6 fl (82.0-101.0); MEAN PLATELET VOLUME 8.9 fl (7.4-10.4); MONOCYTE # 0.5 10^3/ul (0.3-0.9); MONOCYTES % 11.2 % (0.0-11.0); NEUTROPHIL # 2.6 10^3/ul (1.6-7.5); NEUTROPHILS % 58.6 % (39.0-77.0); PLATELET COUNT 199 10^3/UL (140-440); RED BLOOD COUNT 3.83 10^6/ul (4.20-5.40); RED CELL DISTRIBUTION WIDTH 13.9 % (11.5-14.5); UNCORRECTED WBC 4.4 10^3/ul (4.8-10.8); WHITE BLOOD COUNT 4.4 10^3/ul (4.8-10.8)
[2016-11-03 05:54] LABS: CONDITION 1
[2016-11-03 05:57] LABS: ALBUMIN 3.7 g/dl (3.3-4.9)
[2016-11-03 05:58] LABS: POTASSIUM 4.2 mmol/L (3.5-5.1)
[2016-11-03 06:00] LABS: BILIRUBIN,INDIRECT 0.1 mg/dl (0-1.1); BILIRUBIN,TOTAL 0.1 mg/dl (0.2-1.3); CREATININE 0.63 mg/dl (0.44-1.00)
[2016-11-03 06:01] LABS: ALBUMIN/GLOBULIN RATIO 1.15; TOTAL PROTEIN 6.9 g/dl (6.1-8.1)
[2016-11-03 06:02] LABS: CALCIUM 8.7 mg/dl (8.4-10.2)
--- NOTE | 2016-11-03 06:45 | HP ---
Date/Time of Note Date/Time of Note DATE: 11/03/16 TIME: 06:39 Assessment/Plan VTE Prophylaxis VTE Prophylaxis Intervention: SCD's Lines/Catheters IV Catheter Type (from Nrsg): Peripheral IV Assessment/Plan Assessment/Plan IMPRESSION 1. Probable choledocholithiasis 2. Abd pain, likely 2/2 above 3. Abnormal LFTs PLAN NPO, IVF Obtain MRCP pain mgmt pt will be evaluated by Surgery If MRCP shows, CBD dilatation, will place a GI consult HPI/ROS Admit Date/Time Admit Date/Time Nov 03, 2016 at 00:56 Hx of Present Illness 36-year-old female status post laparoscopic cholecystectomy 10/23/2016 by presenting with severe epigastric pain. Patient states that she has had pain since her surgery but not very severe. It was easily controlled with Percocet and ibuprofen. However yesterday, she suddenly got severe epigastric pain, aching and stabbing, nonradiating, associated with nausea but no vomiting. She has had some constipation since her surgery. No fevers, chills. ER course: AST, ALT and AP in the 200s, increased since discharge. Dr. Vuong was consulted By. ER physician. Pt will be admitted and MRCP will be done. . PMH/Family/Social Past Medical History Medical History: gallstones Past Surgical History Past Surgical Hx: cholecystectomy Social History Alcohol Use: none Smoking Status: Current some day smoker Drug Use: none Exam/Review of Systems Vital Signs Vitals Vital Signs Date Time Temp Pulse Resp B/P Pulse Ox O2 Delivery O2 Flow Rate FiO2 11/03/16 02:05 98.6 67 16 115/66 98 Exam Constitutional: alert, oriented, well developed Head: atraumatic, normocephalic Eyes: EOMI, PERRL Neck: non-tender, supple Respiratory: clear to auscultation, normal air movement Cardiovascular: nl pulses, regular rate and rhythm Gastrointestinal: soft, tender Extremities: normal pulses Labs Result Diagram: 11/03/16 0501 11/03/16 0501 Medications Medications Current Medications Dextrose/Sodium Chloride (D5-1/2ns) 1,000 ml @ 100 mls/hr Q10H IV Last administered on 11/03/16t 03:22; Admin Dose 100 MLS/HR; Start 11/03/16 at 03:00 Morphine Sulfate (morphine) 4 mg Q4H PRN IV PAIN; Start 11/03/16 at 03:00 Ondansetron HCl (Zofran Inj) 4 mg Q6H PRN IV NAUSEA AND/OR VOMITING; Start at 03:00 Famotidine (Pepcid Iv) 20 mg BID IV ; Start 11/03/16 at 09:00 ELIZABETH ZAMORA MD Nov 03, 2016 06:45
[2016-11-03] MEDS: FAMOTIDINE 20 MG INJ IV SCH ×2 (08:18→21:05)
[2016-11-03 08:22] VITALS: BP 97/59; RESP 20
--- NOTE | 2016-11-03 11:14 | PN ---
Date/Time of Note Date/Time of Note DATE: 11/03/16 TIME: 11:11 Assessment/Plan VTE Prophylaxis VTE Prophylaxis Intervention: contraindicated (meaning procedure) Lines/Catheters IV Catheter Type (from Nrs): Saline Lock Urinary Cath still in place: No Assessment/Plan Chief Complaint/Hosp Course Hospitalist service coverage Subjective: pushing punching abd pain epigastric, similar to pain in the last week. Nonradiating. Positive nausea no fever. Had a BM yesterday. No dysuria. Pain increased with deep breaths. Objective: Vital signs stable Physical examination No pallor or icterus adenopathy Reg, no murmur or gallop Ctab Bs present/ dimin. Minimal tenderness if any. Nd; No r/ r/ g No edema or Homans sign Assessment and plan 1. Likely choledocholithiasis, stable check MRCP. May need a GI 2. Recent cholecystectomy. path- chronic cholecystitis. 3. Anemia 4. month ~3. Avoid breast-feeding due to morphine Problems: Exam/Review of Systems Vital Signs Vitals Vital Signs Date Time Temp Pulse Resp B/P Pulse Ox O2 Delivery O2 Flow Rate FiO2 11/03/16 08:22 97.9 65 20 97/59 97 Results Result Diagram: 11/03/16 0501 11/03/16 0501 Results 24 hrs Laboratory Tests Test 11/02/16 23:54 11/03/16 05:01 Alanine Aminotransferase (ALT/SGPT) 150 H 264 H Albumin 4.2 3.7 Albumin/Globulin Ratio 1.13 1.15 Alkaline Phosphatase 171 H 204 H Anion Gap 20 H 16 Aspartate Amino Transf (AST/SGOT) 220 H 361 H Basophils # 0.0 0.0 Basophils % 0.5 0.4 Blood Morphology Comment Blood Urea Nitrogen 14 15 Calcium Level 9.6 8.7 Carbon Dioxide Level 29 29 Chloride Level 100 101 Creatinine 0.63 0.63 Direct Bilirubin 0.00 0.00 Eosinophils # 0.1 0.0 Eosinophils % 1.0 1.1 Globulin 3.70 H 3.20 Glucose Level 95 95 Hematocrit 36.5 L 32.4 L Hemoglobin 12.3 11.0 L Indirect Bilirubin 0.1 0.1 Lipase 233 Lymphocytes # 1.6 1.3 Lymphocytes % 20.3 28.7 Mean Corpuscular Hemoglobin 28.3 L 28.6 L Mean Corpuscular Hemoglobin Concent 33.6 33.9 Mean Corpuscular Volume 84.0 84.6 Mean Platelet Volume 9.4 8.9 Monocytes # 0.5 0.5 Monocytes % 5.8 11.2 H Neutrophils # 5.6 2.6 Neutrophils % 72.4 58.6 Nucleated Red Blood Cells # 0.0 0.0 Nucleated Red Blood Cells % 0.0 0.0 Platelet Count 266 # 199 # Potassium Level 4.8 4.2 Red Blood Count 4.34 3.83 L Red Cell Distribution Width 13.6 13.9 Sodium Level 144 142 Total Bilirubin 0.1 L 0.1 L Total Protein 7.9 6.9 # White Blood Count 7.8 # 4.4 #L Medications Medications Current Medications Dextrose/Sodium Chloride (D5-1/2ns) 1,000 ml @ 100 mls/hr Q10H IV Last administered on 11/03/16 03:22; Admin Dose 100 MLS/HR; Start 11/03/16 at 03:00 Morphine Sulfate (morphine) 4 mg Q4H PRN IV PAIN; Start 11/03/16 at 03:00 Ondansetron HCl (Zofran Inj) 4 mg Q6H PRN IV NAUSEA AND/OR VOMITING; Start at 03:00 Famotidine (Pepcid Iv) 20 mg BID IV Last administered on 11/03/16 08:18; Admin Dose 20 MG; Start 11/03/16 at 09:00 FABRICIO ESCAMILLA MD Nov 03, 2016 11:14
--- NOTE | 2016-11-03 11:24 | CONS ---
DATE OF ADMISSION: 11/03/2016 DATE OF CONSULTATION: 11/03/2016 HISTORY OF PRESENT ILLNESS: Ms. Pang is a 36-year-old female who is status post a laparoscopic cholecystectomy on 10/23/2016 for acute cholecystitis. Patient has been having some episodes of abd ominal pain which has been relieved by Percocet. I have spoken to her a few times on phone; however , patient states that last night she had severe pain to her epigastrium with nausea and emesis. Thi s pain was the worst it has been since the surgery and it was not relieved with Percocet. The patie nt presented to the ER, where she had elevated LFTs. PAST MEDICAL HISTORY: Noncontributory. PAST SURGICAL HISTORY: Laparoscopic cholecystectomy. SOCIAL HISTORY: She smokes occasionally. Denies drinking or drug use. MEDICATIONS: None. ALLERGIES: NO KNOWN DRUG ALLERGIES. PHYSICAL EXAMINATION: GENERAL: She is a well-nourished, well-developed female in no apparent distress. VITAL SIGNS: She is afebrile. Vital signs stable. CHEST: Clear to auscultation bilaterally. HEART: Regular rate and rhythm. ABDOMEN: Soft, nontender, nondistended. LABORATORY DATA: Today reveal white count of 4, hematocrit 32 and platelets 199. Sodium 142, potas sium 4.2, chloride 101, CO2 29, BUN and creatinine 15 and 0.6, glucose of 95. Her bilirubin total i s 0.1, AST 361, ALT 264, and alkaline phosphatase 104. She had a lipase yesterday that was 233. ASSESSMENT AND PLAN: Ms. Pang is a 36-year-old female with possible retained stone after laparo scopic cholecystectomy. 1. MRCP. 2. If positive, will likely need ERCP. If negative, would appreciate as well as a gastroenterology consultation. Dictated By: SAUL KELLY/HANY Conf#: [id number] DID#: [id number]
--- NOTE | 2016-11-03 15:38 | RADRPT ---
PROCEDURE: MRCP. CLINICAL INDICATION: Right upper quadrant pain. TECHNIQUE: MRCP was performed on the a high-resolution, high Roberta field strength scanner. Patien t was examined without contrast. 3-D coronal rotating MIP images of the biliary tree are available for review. COMPARISON: None available FINDINGS: Gallbladder is surgically absent. There is approximately 2.2 x 1.8 cm heterogeneous gas containing c ollection in the surgical bed. There is mild central intrahepatic biliary ductal dilatation. Common hepatic duct is prominent measures up to 8 mm. There is nonvisualization of approximately 2 cm se gment of proximal CBD. There appears to be mildly hyperintense soft tissue around the proximal comm on bile duct on noncontrast MRI images. There is normal caliber mid/ distal CBD. No filling defect or choledocholithiasis is seen. The pancreatic duct, as visualized, is equally unremarkable. IMPRESSION: 1. Status post cholecystectomy. Small heterogeneous gas containing fluid collection measuring 2.2 x 1.8 cm in the surgical bed. This could represent postop seroma/hematoma; however cannot exclude ab scess on imaging. 2. Mild central intrahepatic biliary and common hepatic duct dilatation. 3. Nonvisualization of the proximal common bile duct with normal caliber mid distal common bile maurizio t. No choledocholithiasis. There appears to be some amorphous soft tissue intensity around the prox imal common bile duct on noncontrast MRI images which could extrinsically compresses the proximal co mmon bile duct. No choledocholithiasis is identified. Consider additional post contrast images for further evaluation. RPTAT: EE .Shanta Mast MD, Date Time Electronically viewed and signed by .Shanta Mast MD, MD on 11/03/2016 15:38 .O/
[2016-11-03 16:13] LABS: HAAIG REFLEX REFLEX FILED
--- NOTE | 2016-11-03 16:30 | CONS ---
Date/Time of Note Date/Time of Note DATE: 11/03/16 TIME: 16:22 Assessment/Plan Assessment/Plan Additional Assessment/Plan s/p Cholecystectomy, rule out bile leak * Stat HIDA * ERCP tomorrow afternoon. Pt advised of R/B/A of procedure and is agreeable to proceed Abdominal pain, likely 2/2 to above * NPO * IVF Hydration * Pain management * Trend labs Transaminitis * Acute hepatitis serology * Monitor labs Further recommendations depend on clinical course Consultation Date/Type/Reason Admit Date/Time Nov 03, 2016 at 00:56 Type of Consultation: Gastroenterology Reason for Consultation ?Bile leak Hx of Present Illness 36-year-old female status post laparoscopic cholecystectomy 10/23/2016 by presenting with severe epigastric pain and nausea x 1 day. She states pain normally controlled with pain meds up until yesterday. Reports eating slice of cake but nothing out of the ordinary. Pt denies f/c/v but nausea has not improved. MRCP indicates " 1. Status post cholecystectomy. Small heterogeneous gas containing fluid collection measuring 2.2 x 1.8 cm in the surgical bed. This could represent postop seroma/hematoma; however cannot exclude abscess on imaging. 2. Mild central intrahepatic biliary and common hepatic duct dilatation. 3. Nonvisualization of the proximal common bile duct with normal caliber mid distal common bile duct. No choledocholithiasis. There appears to be some amorphous soft tissue intensity around the proximal common bile duct on noncontrast MRI images which could extrinsically compresses the proximal common bile duct. No choledocholithiasis is identified.". Recommend ERCP. Pt advised of R/B/A of procedure and she is agreeable to proceed. Past Medical History Medical History: gallstones Past Surgical History Past Surgical Hx: cholecystectomy Social History Alcohol Use: none Smoking Status: Current some day smoker Drug Use: none Exam/Review of Systems Vital Signs Vitals Vital Signs Date Time Temp Pulse Resp B/P Pulse Ox O2 Delivery O2 Flow Rate FiO2 11/03/16 08:22 97.9 65 20 97/59 97 Exam Constitutional: alert, oriented, well developed Psych: nl mood/affect Head: normocephalic Eyes: EOMI, nl conjunctiva, nl lids, nl sclera ENMT: mucosa pink and moist, nl external ears & nose, nl lips & teeth, nl nasal mucosa & septum Respiratory: normal air movement Cardiovascular: regular rate and rhythm Gastrointestinal: soft, surgical scars, tender (LUQ tenderness) Results Result Diagram: 11/03/16 0501 11/03/16 0501 Results 24 hrs Laboratory Tests Test 11/02/16 23:54 11/03/16 05:01 11/03/16 16:00 Alanine Aminotransferase (ALT/SGPT) 150 H 264 H Albumin 4.2 3.7 Albumin/Globulin Ratio 1.13 1.15 Alkaline Phosphatase 171 H 204 H Anion Gap 20 H 16 Aspartate Amino Transf (AST/SGOT) 220 H 361 H Basophils # 0.0 0.0 Basophils % 0.5 0.4 Blood Morphology Comment Blood Urea Nitrogen 14 15 Calcium Level 9.6 8.7 Carbon Dioxide Level 29 29 Chloride Level 100 101 Creatinine 0.63 0.63 Direct Bilirubin 0.00 0.00 Pending Eosinophils # 0.1 0.0 Eosinophils % 1.0 1.1 Globulin 3.70 H 3.20 Glucose Level 95 95 Hematocrit 36.5 L 32.4 L Hemoglobin 12.3 11.0 L Indirect Bilirubin 0.1 0.1 Lipase 233 Pending Lymphocytes # 1.6 1.3 Lymphocytes % 20.3 28.7 Mean Corpuscular Hemoglobin 28.3 L 28.6 L Mean Corpuscular Hemoglobin Concent 33.6 33.9 Mean Corpuscular Volume 84.0 84.6 Mean Platelet Volume 9.4 8.9 Monocytes # 0.5 0.5 Monocytes % 5.8 11.2 H Neutrophils # 5.6 2.6 Neutrophils % 72.4 58.6 Nucleated Red Blood Cells # 0.0 0.0 Nucleated Red Blood Cells % 0.0 0.0 Platelet Count 266 # 199 # Potassium Level 4.8 4.2 Red Blood Count 4.34 3.83 L Red Cell Distribution Width 13.6 13.9 Sodium Level 144 142 Total Bilirubin 0.1 L 0.1 L Pending Total Protein 7.9 6.9 # White Blood Count 7.8 # 4.4 #L Hepatitis B Core Total Antibody Pending Hepatitis B Surface Antigen Pending Hepatitis C Antibody Pending Medications Medications Current Medications Dextrose/Sodium Chloride (D5-1/2ns) 1,000 ml @ 100 mls/hr Q10H IV Last administered on 11/03/16t 13:11; Admin Dose 100 MLS/HR; Start 11/03/16 at 03:00 Morphine Sulfate (morphine) 4 mg Q4H PRN IV PAIN; Start 11/03/16 at 03:00 Ondansetron HCl (Zofran Inj) 4 mg Q6H PRN IV NAUSEA AND/OR VOMITING; Start at 03:00 Famotidine (Pepcid Iv) 20 mg BID IV Last administered on 11/03/16t 08:18; Admin Dose 20 MG; Start 11/03/16 at 09:00 Indomethacin (Indocin Supp) 100 mg ONCE ONCE AR ; Start 11/04/16 at 08:00; Stop 11/04/16 at 08:01 TRISTAN GARCIA MD Nov 03, 2016 16:30
[2016-11-03 17:32] LABS: HEPATITIS B CORE ANTIBODY NEGATIVE (NEGATIVE)
[2016-11-03 20:12] VITALS: BP 128/69; RESP 18
[2016-11-03] MEDS: morphine 4 MG/ML VIAL IV PRN (21:01)
[2016-11-03] MEDS: ONDANSETRON 4 MG INJ IV PRN (21:01)
--- NOTE | 2016-11-03 21:34 | RADRPT ---
PROCEDURE: HIDA scan CLINICAL INDICATION: 36 -year-old patient with abdominal pain. TECHNIQUE: Following the intravenous injection of 8.0 mCi of Tc-99m mebrofenin, multiple images of the abdomen were obtained up to 90 minutes post injection. COMPARISON: No prior studies. FINDINGS: The liver is promptly visualized, demonstrates homogeneous distribution of radionuclide. There is visualization of the common bile duct and gastrointestinal activity within normal time. IMPRESSION: 1. Nonvisualization of the gallbladder up to 90 minutes post injection. 2. No evidence of common bile duct obstruction. RPTAT: QQ .Molly Cheema MD, Date Time Electronically viewed and signed by .Molly Cheema MD, on 11/03/2016 21:34 .L/
[2016-11-04] VITALS (17 sets, daily range): BP systolic 109–143; BP diastolic 59–82; PULSE 54–76; RESP 11–22
[2016-11-04] MEDS: DEXTROSE 5%-0.45% NACL 1,000 ML IV SCH ×2 (02:33→13:15)
[2016-11-04 06:44] LABS: BASOPHILS % 0.6 % (0.0-2.0); EOSINOPHILS # 0.1 10^3/ul (0.0-0.5); EOSINOPHILS % 2.5 % (0.0-7.0); HEMATOCRIT 34.2 % (37.0-47.0); HEMOGLOBIN 11.5 g/dl (12.0-16.0); LYMPHOCYTES # 1.4 10^3/ul (0.8-2.9); LYMPHOCYTES % 41.3 % (15.0-51.0); MEAN CORPUSCULAR HEMOGLOBIN 28.7 pg (29.0-33.0); MEAN CORPUSCULAR HGB CONC 33.5 g/dl (32.0-37.0); MEAN CORPUSCULAR VOLUME 85.6 fl (82.0-101.0); MONOCYTE # 0.3 10^3/ul (0.3-0.9); MONOCYTES % 7.6 % (0.0-11.0); NEUTROPHIL # 1.7 10^3/ul (1.6-7.5); PLATELET COUNT 220 10^3/UL (140-440); RED BLOOD COUNT 3.99 10^6/ul (4.20-5.40); RED CELL DISTRIBUTION WIDTH 13.7 % (11.5-14.5); UNCORRECTED WBC 3.5 10^3/ul (4.8-10.8); WHITE BLOOD COUNT 3.5 10^3/ul (4.8-10.8)
[2016-11-04 06:46] LABS: INR 0.91; PROTIME 12.3 Sec (12.2-14.2)
[2016-11-04 06:53] LABS: CONDITION 1
[2016-11-04] MEDS ORDERED: NEOSTIGMINE 3 MG/3 ML SYRINGE ONE (07:00)
[2016-11-04] MEDS ORDERED: GLYCOPYRROLATE 0.4 MG INJ ONE (07:00)
[2016-11-04 07:01] LABS: ALBUMIN 3.7 g/dl (3.3-4.9); POTASSIUM 4.1 mmol/L (3.5-5.1)
[2016-11-04 07:03] LABS: BILIRUBIN,INDIRECT 0.3 mg/dl (0-1.1); BILIRUBIN,TOTAL 0.3 mg/dl (0.2-1.3); CREATININE 0.63 mg/dl (0.44-1.00)
[2016-11-04 07:04] LABS: ALBUMIN/GLOBULIN RATIO 1.12; PHOSPHORUS 4.5 mg/dl (2.5-4.9)
[2016-11-04 07:27] LABS: THYROID STIMULATING HORMONE 0.381 MIU/L (0.465-4.680)
[2016-11-04] MEDS ORDERED: INDOMETHACIN 50 MG SUPP PR ONE ×2 (08:00→17:22)
[2016-11-04] MEDS: FAMOTIDINE 20 MG INJ IV SCH ×2 (08:15→21:05)
[2016-11-04] MEDS: morphine 4 MG/ML VIAL IV PRN ×2 (08:16→15:37)
[2016-11-04] MEDS: ONDANSETRON 4 MG INJ IV PRN ×2 (08:25→15:37)
--- NOTE | 2016-11-04 11:47 | PN ---
Date/Time of Note Date/Time of Note DATE: 11/04/16 TIME: 11:39 Assessment/Plan VTE Prophylaxis VTE Prophylaxis Intervention: SCD's Lines/Catheters IV [facility] Type [facility]from [facility] Saline Lock Urinary Cath still in place: No Assessment/Plan Assessment/Plan 1. R/o proximal CBD obstruction from outside compression on MRCP, follow up with GI and surgery, ERCP is scheduled for this evening 2. s/p recent cholecystectomy on 10/23/2016 Subjective 24 Hr Interval Summary Free Text/Dictation right upper abdominal pain, but no fever or chills, some nausea, no vomiting. Pain is worse after eating Exam/Review of Systems Vital Signs Vitals Vital Signs Date Time Temp Pulse Resp B/P Pulse Ox O2 Delivery O2 Flow Rate FiO2 11/04/16 07:39 97.6 67 18 109/59 97 Intake and Output 11/03/16 11/03/16 11/04/16 15:00 23:00 07:00 Intake Total 1000 ml 500 ml 800 ml Output Total 800 ml Balance 1000 ml 500 ml 0 ml Exam Constitutional: alert, oriented, well developed Psych: nl mood/affect, no complaints Head: atraumatic, normocephalic Eyes: EOMI, PERRL, nl conjunctiva, nl lids, nl sclera ENMT: nl external ears & nose, nl lips & teeth, nl nasal mucosa & septum Neck: non-tender, supple Respiratory: clear to auscultation, normal air movement, No congested cough, No crackles/rales, No diminished breath sounds, No intercostal retraction, No labored breathing, No respirations, No tactile fremitus, No wheezing Cardiovascular: nl pulses, regular rate and rhythm, No S3, No S4, No bruits, No diastolic murmur, No edema, No gallop, No irregular rhythm, No jugular venous distention (JVD), No murmurs/extra sounds, No rub, No systolic murmur Gastrointestinal: nl liver, spleen, other (right upper abdominal tenderness), soft, No ascites, No bowel sounds, No distended, No firm, No hepatomegaly, No mass , No rebound or guarding, No splenomegaly, No surgical scars Extremities: normal pulses, No calf tenderness, No clubbing, No cyanosis, No edema, No palpable cord, No pitting pedal edema, No tenderness Neurological: LIVESTOCK NUTRITIONIST II-XII intact, nl mental status, nl speech, nl strength Skin: nl turgor, rash or lesions Lymph: nl lymph nodes Results Result Diagram: 11/04/1615 11/04/16 0515 Results 24 hrs Laboratory Tests Test 11/03/16 16:00 11/04/16 05:15 Direct Bilirubin 0.00 0.00 Hepatitis B Core Total Antibody NEGATIVE Hepatitis B Surface Antigen NEGATIVE Hepatitis C Antibody NEGATIVE Lipase 83 113 Total Bilirubin 0.0 L 0.3 Activated Partial Thromboplast Time 41.0 H Alanine Aminotransferase (ALT/SGPT) 178 H Albumin 3.7 Albumin/Globulin Ratio 1.12 Alkaline Phosphatase 156 H Anion Gap 15 Aspartate Amino Transf (AST/SGOT) 93 H Basophils # 0.0 Basophils % 0.6 Blood Morphology Comment Blood Urea Nitrogen 9 Calcium Level 9.0 Carbon Dioxide Level 31 Chloride Level 104 Creatinine 0.63 Eosinophils # 0.1 Eosinophils % 2.5 Globulin 3.30 H Glucose Level 97 Hematocrit 34.2 L Hemoglobin 11.5 L INR International Normalized Ratio 0.91 Indirect Bilirubin 0.3 Lymphocytes # 1.4 Lymphocytes % 41.3 Magnesium Level 2.0 Mean Corpuscular Hemoglobin 28.7 L Mean Corpuscular Hemoglobin Concent 33.5 Mean Corpuscular Volume 85.6 Mean Platelet Volume 9.0 Monocytes # 0.3 Monocytes % 7.6 Neutrophils # 1.7 Neutrophils % 48.0 Nucleated Red Blood Cells # 0.0 Nucleated Red Blood Cells % 0.0 Phosphorus Level 4.5 Platelet Count 220 Potassium Level 4.1 Prothrombin Time 12.3 Prothrombin Time Ratio 1.0 Red Blood Count 3.99 L Red Cell Distribution Width 13.7 Sodium Level 146 H Thyroid Stimulating Hormone (TSH) 0.381 L Total Protein 7.0 White Blood Count 3.5 #L Medications Medications Current Medications Dextrose/Sodium Chloride (D5-1/2ns) 1,000 ml @ 100 mls/hr Q10H IV Last administered on 11/04/16 02:33; Admin Dose 100 MLS/HR; Start 11/03/16 at 03:00 Morphine Sulfate (morphine) 4 mg Q4H PRN IV PAIN Last administered on 08:16; Admin Dose 4 MG; Start 11/03/16 at 03:00 Ondansetron HCl (Zofran Inj) 4 mg Q6H PRN IV NAUSEA AND/OR VOMITING Last administered on 11/04/16 08:25; Admin Dose 4 MG; Start 11/03/16 at 03:00 Famotidine (Pepcid Iv) 20 mg BID IV Last administered on 11/04/16 08:15; Admin Dose 20 MG; Start 11/03/16 at 09:00 REBECA ARCE MD Nov 04, 2016 11:47
[2016-11-04] MEDS ORDERED: PROPOFOL 100 ML ONE (17:28)
[2016-11-04] MEDS ORDERED: ROCURONIUM 50 MG INJ ONE (17:29)
[2016-11-04] MEDS ORDERED: SUCCINYLCHOLINE CHLORIDE 100 MG/5 ML SYG IV ONE ×2 (17:29→18:00)
[2016-11-04 17:31] LABS: ADD UMIC YES; URINE BILIRUBIN (Dip) NEGATIVE (NEGATIVE); URINE BLOOD (Dip) NEGATIVE (NEGATIVE); URINE COLOR LT. YELLOW (YELLOW); URINE GLUCOSE (Dip) NEGATIVE (NEGATIVE); URINE KETONES (Dip) NEGATIVE (NEGATIVE); URINE LEUKOCYTE ESTERASE (Dip) TRACE (NEGATIVE); URINE NITRITE (Dip) NEGATIVE (NEGATIVE); URINE TOTAL PROTEIN (Dip) NEGATIVE (NEGATIVE); URINE UROBILINOGEN (Dip) 0.2 E.U./dL (0.1-1.0)
[2016-11-04] MEDS ORDERED: LIDOCAINE 2% (SDV) 5 ML INJ ONE (17:33)
[2016-11-04 17:42] LABS: BACTERIA,URINE FEW; URINE RBCS 0-2 /HPF (0)
[2016-11-04] MEDS ORDERED: DEXAMETHASONE 4 MG/ML 1 ML INJ ONE (17:57)
[2016-11-04] MEDS ORDERED: ONDANSETRON 4 MG INJ ONE (17:57)
[2016-11-04] MEDS ORDERED: FENTAnyl 50 MCG/ML VIAL IV PRN ×3 (18:00)
[2016-11-04] MEDS ORDERED: ONDANSETRON 4 MG INJ IV PRN (18:00)
[2016-11-04] MEDS ORDERED: METOCLOPRAMIDE 10 MG INJ IV PRN (18:00)
[2016-11-04] MEDS ORDERED: KETOROLAC 15 MG INJ IV ONE (18:00)
[2016-11-04] MEDS ORDERED: MEPERIDINE 25 MG INJ IV PRN (18:00)
[2016-11-04] MEDS ORDERED: LABETALOL HCL 20MG INJ IV PRN (18:00)
[2016-11-04] MEDS ORDERED: HYDROmorphONE (0.2 MG/ML) 10ML SYG IV PRN ×3 (18:00)
[2016-11-04] MEDS ORDERED: KETOROLAC 30 MG INJ IV ONE (18:00)
--- NOTE | 2016-11-04 20:56 | RADRPT ---
PROCEDURE: X-ray cholangiogram and ERCP CLINICAL INDICATION: Right upper quadrant pain. Pancreatitis TECHNIQUE: 11 x-ray images during ERCP were obtained. Procedure was performed by . COMPARISON: None available FINDINGS: X-ray guidance during ERCP was performed. 108.6 seconds of fluoroscopy time was utilized during the procedure. Sphincterotomy with balloon sweep was performed. There is tapered narrowing of a segme nt of proximal common bile duct over a length of 3.3 cm. The intrahepatic bile ducts are normal in caliber. Surgical bogdan are seen in the gallbladder fossa. IMPRESSION: 1. X-ray guidance during ERCP performed by Yonathan. Physician Willis Date Time Electronically viewed and signed by Physician Willis on 11/04/2016 20:56 /
[2016-11-05] MEDS: DEXTROSE 5%-0.45% NACL 1,000 ML IV SCH (02:34)
[2016-11-05] MEDS: morphine 4 MG/ML VIAL IV PRN ×3 (02:37→22:51)
[2016-11-05 06:23] LABS: ALBUMIN 3.8 g/dl (3.3-4.9)
[2016-11-05 06:24] LABS: POTASSIUM 4.8 mmol/L (3.5-5.1)
[2016-11-05 06:26] LABS: ALBUMIN/GLOBULIN RATIO 1.02; BILIRUBIN,INDIRECT 0.3 mg/dl (0-1.1); BILIRUBIN,TOTAL 0.3 mg/dl (0.2-1.3); CREATININE 0.6 mg/dl (0.44-1.00); TOTAL PROTEIN 7.5 g/dl (6.1-8.1)
[2016-11-05 06:27] LABS: CALCIUM 9.2 mg/dl (8.4-10.2)
[2016-11-05 06:46] LABS: BASOPHILS % 0.2 % (0.0-2.0); HEMATOCRIT 35.4 % (37.0-47.0); HEMOGLOBIN 12.1 g/dl (12.0-16.0); LYMPHOCYTES # 0.9 10^3/ul (0.8-2.9); LYMPHOCYTES % 19.2 % (15.0-51.0); MEAN CORPUSCULAR HEMOGLOBIN 28.8 pg (29.0-33.0); MEAN CORPUSCULAR HGB CONC 34.1 g/dl (32.0-37.0); MEAN CORPUSCULAR VOLUME 84.4 fl (82.0-101.0); MEAN PLATELET VOLUME 9.3 fl (7.4-10.4); MONOCYTE # 0.2 10^3/ul (0.3-0.9); MONOCYTES % 3.2 % (0.0-11.0); NEUTROPHIL # 3.7 10^3/ul (1.6-7.5); NEUTROPHILS % 77.4 % (39.0-77.0); PLATELET COUNT 273 10^3/UL (140-440); RED CELL DISTRIBUTION WIDTH 13.2 % (11.5-14.5); UNCORRECTED WBC 4.8 10^3/ul (4.8-10.8); WHITE BLOOD COUNT 4.8 10^3/ul (4.8-10.8)
[2016-11-05 07:11] LABS: CONDITION 1
[2016-11-05 07:33] VITALS: BP 130/70; RESP 18
--- NOTE | 2016-11-05 07:36 | GILP ---
DATE OF PROCEDURE: 11/04/2016 NAME OF PROCEDURE: Endoscopic retrograde cholangiopancreatography with endoscopic retrograde sphinc terotomy. SURGEON: Tristan Mcmanus MD PREOPERATIVE DIAGNOSIS: POSTOPERATIVE DIAGNOSIS: BRIEF HISTORY AND INDICATIONS: The patient is post laparoscopic cholecystectomy, uneventful, 2016. Comes back to the hospital complaining of severe epigastric and mostly right upper quadrant a bdominal pain postprandial. MRCP showed no evidence of common bile duct stone, but significant dila tation of the biliary tree. Liver function tests are significantly elevated. PREMEDICATION: General anesthesia by anesthesiologist. INSTRUMENT USED: Olympus side viewing panendoscope. TECHNIQUE: After informed consent, with the patient/relatives understanding the procedure, its indic ations, potential risks and complications, including but not limited to: allergic reaction, bleeding , perforation or infection, and after all pertinent questions were answered to the patient's satisfa ction, the patient/relatives signed witnessed informed consent. Following this, premedication was administered slowly IV push under careful cardiovascular and respi ratory monitoring with pulse oximetry, automatic blood pressure and cargoman. Once the sedative effect was achieved the patient was place in the prone position in the radiology s pecial procedures suite; the side viewing panendoscope was introduced and advanced under visual cont rol. Careful examination of the upper gastrointestinal tract, both on insertion as well as withdrawal of the instrument disclosed the following findings: ESOPHAGUS: The mucosa of the entire esophagus appears within normal limits. There is no evidence of esophagitis, varices, neoplasm or stricture. No Hiatal Hernia identified. STOMACH: Upon entrance to the stomach air was insufflated, the gastric swain distended normally. Th e mucosa of the fundus, body and antrum of the stomach was carefully examined both head-on and on re troflexion, and shows no abnormalities. There is no evidence of gastritis, ulcers or neoplasm. PYLORUS: The pylorus appears patent and within normal limits, with no evidence of gastric outlet ob struction. DUODENUM: The duodenal mucosa was carefully examined in the duodenal bulb as well as the second por tion of the duodenum and appears unremarkable with no evidence of duodenitis, ulcer or neoplasm. AMPULLA OF VATER: Somewhat prominent, but otherwise unremarkable. It was cannulated without diffic ulty. Initially pancreatic duct which appears entirely unremarkable. CANNULATION: At this point we selectively cannulated the biliary tree, and the biliary tree shows mo derate dilatation with a maximum diameter of 12 mm. There is an area in the junction of the common bile duct and common hepatic duct approximately 2 cm in length that shows smooth narrowing with an e stimated lumen of probably 8 mm upon distention. No intraductal pathology is present. A small sphincterotomy was performed to ease emptying of the biliary tree, and a balloon catheter wa s utilized to sweep the biliary several locations. Disclosed no further abnormalities. IMPRESSION: 1. Normal pancreatogram. 2. Cholangiogram showing moderate dilatation with a maximum diameter of 12 mm. The area of the gertrude ction of the common bile duct, common hepatic duct shows a 2 cm area of slight narrowing that is smo oth and with no evidence of intraductal pathology. A small sphincterotomy was performed and the ale iary tree was swept with no stones or sludge obtained. PLAN: The patient will be closely observed. Further recommendation will depend on her clinical cou rse. Dictated By: TRISTAN ARCINIEGA Conf#: [id number] DID#: [id number]
[2016-11-05] MEDS: FAMOTIDINE 20 MG INJ IV SCH ×2 (09:26→21:03)
--- NOTE | 2016-11-05 12:05 | PN ---
Date/Time of Note Date/Time of Note DATE: 11/05/16 TIME: 11:56 Assessment/Plan VTE Prophylaxis VTE Prophylaxis Intervention: SCD's Lines/Catheters IV Catheter Type (from [facility]): Peripheral IV Urinary Cath still in place: No Assessment/Plan Assessment/Plan 1. R/o proximal CBD obstruction from outside compression unremarkable ERCP, elevated LTFs today, advance diet and follow up with LFTs 2. s/p recent cholecystectomy on 10/23/2016 Subjective 24 Hr Interval Summary Free Text/Dictation less abdominal pain, afebrile. no nausea or vomiting Exam/Review of Systems Vital Signs Vitals Vital Signs Date Time Temp Pulse Resp B/P Pulse Ox O2 Delivery O2 Flow Rate FiO2 11/05/16 07:33 98.0 64 18 130/70 96 11/04/16 19:19 Room Air Intake and Output 11/04/16 11/04/16 11/05/16 15:00 23:00 07:00 Intake Total 700 ml 460 ml 960 ml Output Total 600 ml 700 ml Balance 700 ml -140 ml 260 ml Exam Constitutional: alert, oriented, well developed Psych: nl mood/affect, no complaints Head: normocephalic Eyes: EOMI, PERRL, nl conjunctiva, nl lids, nl sclera ENMT: mucosa pink and moist, nl external ears & nose, nl lips & teeth, nl nasal mucosa & septum Neck: non-tender, supple Respiratory: clear to auscultation, normal air movement, No congested cough, No crackles/rales, No diminished breath sounds, No intercostal retraction, No labored breathing, No respirations, No tactile fremitus, No wheezing Cardiovascular: nl pulses, regular rate and rhythm, No S3, No S4, No bruits, No diastolic murmur, No edema, No gallop, No irregular rhythm, No jugular venous distention (JVD), No murmurs/extra sounds, No rub, No systolic murmur Gastrointestinal: nl liver, spleen, non-tender, soft, No ascites, No bowel sounds, No distended, No firm, No hepatomegaly, No mass , No rebound or guarding, No splenomegaly, No surgical scars, No tender Musculoskeletal: nl extremities to inspection Extremities: normal pulses, No calf tenderness, No clubbing, No cyanosis, No edema, No palpable cord, No pitting pedal edema, No tenderness Neurological: ISOTOPE TECHNICIAN II-XII intact, nl mental status, nl speech, nl strength Skin: nl turgor, rash or lesions Lymph: nl lymph nodes Results Result Diagram: 11/05/16 0520 11/05/16 0520 Results 24 hrs Laboratory Tests Test 11/04/16 16:45 11/05/16 05:20 Urine Bacteria FEW Urine Bilirubin NEGATIVE Urine Clarity CLEAR Urine Color LT. YELLOW Urine Epithelial Cells FEW Urine Glucose NEGATIVE Urine Hemoglobin NEGATIVE Urine Ketones NEGATIVE Urine Leukocyte Esterase TRACE H Urine Microscopic RBC 0-2 Urine Microscopic WBC 2-5 Urine Nitrite NEGATIVE Urine Test NEGATIVE Urine Specific [place] 1.010 Urine Total Protein NEGATIVE Urine Urobilinogen 0.2 E.U./dL Urine pH 6.0 Alanine Aminotransferase (ALT/SGPT) 421 H Albumin 3.8 Albumin/Globulin Ratio 1.02 Alkaline Phosphatase 256 #H Anion Gap 15 Aspartate Amino Transf (AST/SGOT) 395 H Basophils # 0.0 Basophils % 0.2 Blood Morphology Comment Blood Urea Nitrogen 8 Calcium Level 9.2 Carbon Dioxide Level 30 Chloride Level 102 Creatinine 0.60 Direct Bilirubin 0.00 Eosinophils # 0.0 Eosinophils % 0.0 Globulin 3.70 H Glucose Level 115 Hematocrit 35.4 L Hemoglobin 12.1 Indirect Bilirubin 0.3 Lymphocytes # 0.9 Lymphocytes % 19.2 Mean Corpuscular Hemoglobin 28.8 L Mean Corpuscular Hemoglobin Concent 34.1 Mean Corpuscular Volume 84.4 Mean Platelet Volume 9.3 Monocytes # 0.2 L Monocytes % 3.2 Neutrophils # 3.7 Neutrophils % 77.4 H Nucleated Red Blood Cells # 0.0 Nucleated Red Blood Cells % 0.0 Platelet Count 273 # Potassium Level 4.8 Red Blood Count 4.20 Red Cell Distribution Width 13.2 Sodium Level 142 Total Bilirubin 0.3 Total Protein 7.5 White Blood Count 4.8 # Medications Medications Current Medications Dextrose/Sodium Chloride (D5-1/2ns) 1,000 ml @ 100 mls/hr Q10H IV Last administered on 11/05/16 02:34; Admin Dose 100 MLS/HR; Start 11/03/16 at 03:00 Morphine Sulfate (morphine) 4 mg Q4H PRN IV PAIN Last administered on 09:41; Admin Dose 4 MG; Start 11/03/16 at 03:00 Ondansetron HCl (Zofran Inj) 4 mg Q6H PRN IV NAUSEA AND/OR VOMITING Last administered on 11/04/16 15:37; Admin Dose 4 MG; Start 11/03/16 at 03:00 Famotidine (Pepcid Iv) 20 mg BID IV Last administered on 11/05/16 09:26; Admin Dose 20 MG; Start 11/03/16 at 09:00 REBECA ARCE MD Nov 05, 2016 12:05
--- NOTE | 2016-11-05 13:30 | CONS ---
Date/Time of Note Date/Time of Note DATE: 11/05/16 TIME: 13:25 Assessment/Plan Assessment/Plan Additional Assessment/Plan s/p Cholecystectomy, rule out bile leak * HIDA * 1. Nonvisualization of the gallbladder up to 90 minutes post injection. * 2. No evidence of common bile duct obstruction. * s/p ERCP 11/04/16 * Normal pancreatogram. * Cholangiogram showing moderate dilatation with a maximum diameter of 12 mm. The area of the junction of the common bile duct, common hepatic duct shows a 2 cm area of slight narrowing that is smooth and with no evidence of intraductal pathology. A small sphincterotomy was performed and the biliary tree was swept with no stones or sludge obtained. Abdominal pain, likely 2/2 to above * NPO * IVF Hydration * Pain management * Trend labs Transaminitis * Acute hepatitis serology, neg * Monitor labs Further recommendations depend on clinical course Consultation Date/Type/Reason Admit Date/Time Nov 03, 2016 at 00:56 Initial Consult Date Type of Consultation: Gastroenterology 24 HR Interval Summary Subjective hx not possible: pt non-verbal Exam/Review of Systems Vital Signs Vitals Vital Signs Date Time Temp Pulse Resp B/P Pulse Ox O2 Delivery O2 Flow Rate FiO2 11/05/16 07:33 98.0 64 18 130/70 96 11/04/16 19:19 Room Air Intake and Output 11/04/16 11/04/16 11/05/16 15:00 23:00 07:00 Intake Total 700 ml 460 ml 960 ml Output Total 600 ml 700 ml Balance 700 ml -140 ml 260 ml Exam Constitutional: alert, oriented, well developed Psych: nl mood/affect Head: normocephalic Eyes: EOMI, nl conjunctiva, nl lids, nl sclera ENMT: mucosa pink and moist, nl external ears & nose, nl lips & teeth, nl nasal mucosa & septum Respiratory: normal air movement Cardiovascular: regular rate and rhythm Gastrointestinal: soft, surgical scars, tender (LUQ tenderness) Results Result Diagram: 11/05/16 0520 11/05/16 0520 Results 24 hrs Laboratory Tests Test 11/04/16 16:45 11/05/16 05:20 Urine Bacteria FEW Urine Bilirubin NEGATIVE Urine Clarity CLEAR Urine Color LT. YELLOW Urine Epithelial Cells FEW Urine Glucose NEGATIVE Urine Hemoglobin NEGATIVE Urine Ketones NEGATIVE Urine Leukocyte Esterase TRACE H Urine Microscopic RBC 0-2 Urine Microscopic WBC 2-5 Urine Nitrite NEGATIVE Urine Test NEGATIVE Urine Specific [place] 1.010 Urine Total Protein NEGATIVE Urine Urobilinogen 0.2 E.U./dL Urine pH 6.0 Alanine Aminotransferase (ALT/SGPT) 421 H Albumin 3.8 Albumin/Globulin Ratio 1.02 Alkaline Phosphatase 256 #H Anion Gap 15 Aspartate Amino Transf (AST/SGOT) 395 H Basophils # 0.0 Basophils % 0.2 Blood Morphology Comment Blood Urea Nitrogen 8 Calcium Level 9.2 Carbon Dioxide Level 30 Chloride Level 102 Creatinine 0.60 Direct Bilirubin 0.00 Eosinophils # 0.0 Eosinophils % 0.0 Globulin 3.70 H Glucose Level 115 Hematocrit 35.4 L Hemoglobin 12.1 Indirect Bilirubin 0.3 Lymphocytes # 0.9 Lymphocytes % 19.2 Mean Corpuscular Hemoglobin 28.8 L Mean Corpuscular Hemoglobin Concent 34.1 Mean Corpuscular Volume 84.4 Mean Platelet Volume 9.3 Monocytes # 0.2 L Monocytes % 3.2 Neutrophils # 3.7 Neutrophils % 77.4 H Nucleated Red Blood Cells # 0.0 Nucleated Red Blood Cells % 0.0 Platelet Count 273 # Potassium Level 4.8 Red Blood Count 4.20 Red Cell Distribution Width 13.2 Sodium Level 142 Total Bilirubin 0.3 Total Protein 7.5 White Blood Count 4.8 # Medications Medications Current Medications Dextrose/Sodium Chloride (D5-1/2ns) 1,000 ml @ 100 mls/hr Q10H IV Last administered on 11/05/16 02:34; Admin Dose 100 MLS/HR; Start 11/03/16 at 03:00 Morphine Sulfate (morphine) 4 mg Q4H PRN IV PAIN Last administered on 09:41; Admin Dose 4 MG; Start 11/03/16 at 03:00 Ondansetron HCl (Zofran Inj) 4 mg Q6H PRN IV NAUSEA AND/OR VOMITING Last administered on 11/04/16 15:37; Admin Dose 4 MG; Start 11/03/16 at 03:00 Famotidine (Pepcid Iv) 20 mg BID IV Last administered on 11/05/16 09:26; Admin Dose 20 MG; Start 11/03/16 at 09:00 JOSEFINA MAHER Nov 05, 2016 13:30
[2016-11-05] MEDS: PANTOPRAZOLE (EC) 40 MG TAB PO SCH (14:00)
--- NOTE | 2016-11-05 18:03 | RADRPT ---
PROCEDURE: US Abdomen (right upper quadrant). CLINICAL INDICATION: Elevated liver enzymes. TECHNIQUE: Multiple real-time longitudinal and transverse images of the right upper quadrant of th e abdomen were acquired utilizing a curved array transducer. Images were reviewed on a high-resoluti on PACS workstation. COMPARISON: None FINDINGS: The liver is enlarged and normal in echogenicity. There is no focal hepatic lesion. Color Doppler and pulsed Doppler sonography demonstrate normal a ntegrade flow in the portal vein. The gallbladder is surgically absent. The bile ducts are normal with the common bile duct measuring 3.9 mm in diameter. The visualized portions of the pancreas are unremarkable with obscuration of the tail of the pancrea s. No free fluid is present. The right kidney measures 11.0 cm. There is normal echogenicity of the right kidney. There is no perinephric fluid collection. No hydronephrosis, mass, or calculus is seen. IMPRESSION: 1. Hepatomegaly. 2. Status post cholecystectomy. 3. Otherwise normal right upper quadrant abdomen ultrasound. RPTAT: QQ .Johnny Nunes MD, MD Date Time Electronically viewed and signed by .Johnny Nunes MD, on 11/05/2016 18:02 .R/
[2016-11-05 19:42] VITALS: BP 127/73; RESP 20
[2016-11-06 05:30] LABS: ALBUMIN 3.5 g/dl (3.3-4.9)
[2016-11-06 05:31] LABS: POTASSIUM 4.4 mmol/L (3.5-5.1)
[2016-11-06 05:33] LABS: ALBUMIN/GLOBULIN RATIO 1.12; CALCIUM 8.5 mg/dl (8.4-10.2); CREATININE 0.7 mg/dl (0.44-1.00); TOTAL PROTEIN 6.6 g/dl (6.1-8.1)
[2016-11-06 07:29] VITALS: BP 132/63; RESP 16
[2016-11-06] MEDS: PANTOPRAZOLE (EC) 40 MG TAB PO SCH (09:32)
[2016-11-06] MEDS: FAMOTIDINE 20 MG INJ IV SCH (09:32)
--- NOTE | 2016-11-06 10:29 | CONS ---
Date/Time of Note Date/Time of Note DATE: 11/06/16 TIME: 10:23 Assessment/Plan Assessment/Plan Additional Assessment/Plan s/p Cholecystectomy, rule out bile leak * HIDA * 1. Nonvisualization of the gallbladder up to 90 minutes post injection. * 2. No evidence of common bile duct obstruction. * s/p ERCP 11/04/16 * Normal pancreatogram. * Cholangiogram showing moderate dilatation with a maximum diameter of 12 mm. The area of the junction of the common bile duct, common hepatic duct shows a 2 cm area of slight narrowing that is smooth and with no evidence of intraductal pathology. A small sphincterotomy was performed and the biliary tree was swept with no stones or sludge obtained. Abdominal pain, likely 2/2 to above * Advanced diet as tolerated * Pain management * Trend labs Transaminitis * Acute hepatitis serology, neg * Monitor labs Patient stable from GI standpoint Further recommendations depend on clinical course Patient seen in collaboration with Dr. Mcmanus Consultation Date/Type/Reason Admit Date/Time Nov 03, 2016 at 00:56 Type of Consultation: Gastroenterology 24 HR Interval Summary Free Text/Dictation LFTs trending down Tolerating diet, denies abdominal pain, nausea, vomiting Patient stable from GI standpoint Exam/Review of Systems Vital Signs Vitals Vital Signs Date Time Temp Pulse Resp B/P Pulse Ox O2 Delivery O2 Flow Rate FiO2 11/06/16 07:29 98.1 60 16 132/63 97 11/04/16 19:19 Room Air Intake and Output 11/05/16 11/05/16 11/06/16 15:00 23:00 07:00 Intake Total 900 ml 1020 ml 480 ml Balance 900 ml 1020 ml 480 ml Exam Constitutional: alert, oriented, well developed Psych: nl mood/affect Head: normocephalic Eyes: EOMI, nl conjunctiva, nl lids, nl sclera ENMT: mucosa pink and moist, nl external ears & nose, nl lips & teeth, nl nasal mucosa & septum Respiratory: normal air movement Cardiovascular: regular rate and rhythm Gastrointestinal: soft, surgical scars, non-tender Results Result Diagram: 11/05/16 0520 11/06/16 0452 Results 24 hrs Laboratory Tests Test 11/06/16 04:52 Alanine Aminotransferase (ALT/SGPT) 222 H Albumin 3.5 Albumin/Globulin Ratio 1.12 Alkaline Phosphatase 151 H Anion Gap 14 Aspartate Amino Transf (AST/SGOT) 81 H Blood Urea Nitrogen 15 Calcium Level 8.5 Carbon Dioxide Level 30 Chloride Level 106 Creatinine 0.70 Direct Bilirubin 0.00 Globulin 3.10 Glucose Level 100 Indirect Bilirubin 0.0 Potassium Level 4.4 Sodium Level 146 H Total Bilirubin 0.0 L Total Protein 6.6 Medications Medications Current Medications Morphine Sulfate (morphine) 4 mg Q4H PRN IV PAIN Last administered on 22:51; Admin Dose 4 MG; Start 11/03/16 at 03:00 Ondansetron HCl (Zofran Inj) 4 mg Q6H PRN IV NAUSEA AND/OR VOMITING Last administered on 11/04/16 15:37; Admin Dose 4 MG; Start 11/03/16 at 03:00 Famotidine (Pepcid Iv) 20 mg BID IV Last administered on 11/06/16 09:32; Admin Dose 20 MG; Start 11/03/16 at 09:00 Pantoprazole (Protonix Tab) 40 mg DAILY PO Last administered on 11/06/16 09:32 ; Admin Dose 40 MG; Start 11/05/16 at 14:00 JOSEFINA MAHER Nov 06, 2016 10:29 JOSEFINA MAHER Nov 06, 2016 10:29
--- NOTE | 2016-11-06 12:20 | PDOCDIS ---
Discharge Instructions CONDITION Patient Condition: Good HOME CARE INSTRUCTIONS: Special Diet: SOFT ACTIVITY: Activity Restrictions: Slowly Increase Activity Rest between Activity Avoid heavy lifting FOLLOW UP/APPOINTMENTS Appointments Follow up with General surgeon in one week NOEL BATES MD Nov 06, 2016 12:20
[2016-11-06] MEDS ORDERED: PANT40TA4 PO (12:21)
--- NOTE | 2016-11-07 06:26 | DS ---
DATE OF ADMISSION: 11/03/2016 DATE OF DISCHARGE: 11/06/2016 PATIENT ACCOUNT SPECIALIST: Dr. Waylon Mcmanus PROCEDURES: Endoscopic retrograde cholangiopancreatography with endoscopic retrograde sternectomy w ith the finding of normal pancreatogram. Cholangiogram showed moderate dilation and maximal diamete r of 12 mm. The area of the junction of the common bile duct, common hepatic duct showed 2 cm area of slight narrowing that is smooth and with no evidence of intraductal pathology. Small was p erformed and the biliary tree was swept with no stone or sludge obtained. DIAGNOSES 1. Abdominal pain, endoscopic retrograde cholangiopancreatography was unremarkable. 2. History of cholecystectomy with no visualization of the gallbladder up to 90% post-injection on the HIDA scan. No evidence of common bile duct obstruction. 3. Transaminitis likely secondary to acute hepatitis. Serology was found to be negative. 3. Transaminitis, improving. MEDICATIONS: 1. [place]. 2. Ferrous gluconate. 3. Protonix. 4. vitamins. ALLERGIES: NO KNOWN DRUG ALLERGIES. LABS: Sodium 146, potassium 4.4, chloride 106, bicarbonate 30, BUN 15, creatinine 0.70, glucose 100 . 5.2, calcium 8.5. LFTs: AST 81, ALT 222, alkaline phosphatase 151, total protein 6.6, al bumin 3.5. Hepatitis panel: Hepatitis A, IgM antibody is negative. Hepatitis B-s antigen negative , hepatitis core total antibody negative, hepatitis C antibody negative. WBC 4.8, hemoglobin 12.1, hematocrit 35.4, platelets 273. HOSPITAL COURSE: This is a 36-year-old female with past medical history of laparoscopic cholecystec sandy on 10/23/[address] Vuong. She presented to the emergency room secondary to the emergency carlos m, she is now having severe epigastric pain. Patient stated that she had pain since her surgery, bu t was not very severe. The pain is controlled with Percocet and ibuprofen. The patient presented t o another facility on 11/03/2016. For insurance purposes and she was transferred to [facility] where patient's LFTs were found to be elevated with AST 20, ALT 150, alkaline phosphata se 171. Aluminum Pourer and general surgery was consulted. Patient's hepatitis panel was found to be negative. Magnetic resonance cholangiopancreatography was obtained and showed status post cho lecystectomy, small heterogeneous gas containing fluid collection measuring 2.2 x 1.8 cm in the surg ical bed. This could represent postop seroma and hematoma; however, cannot exclude abscess on the i maging. HIDA scan was obtained which showed nonvisualization of gallbladder up to 90 minutes post-i njection. No evidence of common bile duct obstruction. ERCP was done and there was no evidence of s tone or obstruction. The patient was started on clear liquid diet and was advanced as tolerated. A t this time, the patient has been able to tolerate oral intake without any difficulty. Her LFTs hav e been improving. At this time, the patient is medically and as per GI standpoint is cleared to be discharged home. She needs to follow up with mud trucker and general surgery as outpatient. Total time spent for advise and discharge workup 40 minutes. Dictated By: NOEL HWANG/HANY Conf#: [id number] DID#: [id number]
== END 2016-11-06 15:30 | disposition home or self-care (01) | DRG 392 ==
LOC: E/R 22:58 → MS2 11-03 00:56
PROVIDERS: ADMIT Internal Medicine; ATTEND Internal Medicine
PROC: 0FJB8ZZ Inspection of Hepatobiliary Duct, Via Natural or Artificial Opening Endoscopic (ICD-10-PCS; principal; 2016-11-04 18:00)
DX: R10.11 Right upper quadrant pain (principal); B17.9 Acute viral hepatitis, unspecified; G89.18 Other acute postprocedural pain; D64.9 Anemia, unspecified; Z72.0 Tobacco use; Z90.49 Acquired absence of other specified parts of digestive tract
CPT/HCPCS: 36415; 71010; 74181; 74330; 76705; 78226; 80053; 81001; 81003; 82247; 82248; 83036; 83690; 83735; 84100; 84443; 84703; 85025; 85610; 85730; 86704; 86709; 86803; 87340; 93005; 96374; 96375; A9537; G0378; J0330; J1100; J1885; J2270; J2405; J2710; J2765; J3010; J7042

== ENCOUNTER 2019-03-29 10:00 | Inpatient (IN) | payer OTHER ==
[~2019-03-29] VITALS: Ht 167.6 cm; Wt 98.5 kg
[~2019-03-29 10:00] MED LIST changes: -HYDR-3498 PO; +HYDR-3601 PO; +PANT40TA4 PO
[2019-03-29 16:00] VITALS: BP 136/92; PULSE 83; RESP 18
[2019-03-29] MEDS ORDERED: CHOL100062 PO (17:31)
[2019-03-29] MEDS ORDERED: FERR256T PO (17:31)
[2019-03-29] MEDS ORDERED: CALC600T24 PO (17:31)
[2019-03-29] MEDS ORDERED: LACTATED RINGER'S 1,000 ML IV PRN (17:34)
[2019-03-29] MEDS: LACTATED RINGER'S 1,000 ML IV SCH (17:44)
[2019-03-29] MEDS ORDERED: OXYTOCIN 30 UNITS/LR 500 ML IV PRN ×2 (18:00)
[2019-03-29] MEDS ORDERED: MISOPROSTOL 50 MCG CAPSULE VAG ONE (18:00)
[2019-03-29] MEDS ORDERED: BUTORPHANOL 2 MG INJ IV PRN ×2 (18:00)
[2019-03-29] MEDS ORDERED: CARBOPROST 250 MCG INJ IM PRN (18:00)
[2019-03-29] MEDS ORDERED: IBUPROFEN 600 MG TAB PO PRN (18:00)
[2019-03-29] MEDS ORDERED: MISOPROSTOL 200 MCG TAB PR PRN (18:00)
[2019-03-29] MEDS ORDERED: LIDOCAINE 1% (MPF) 30 ML INJ INJ PRN (18:00)
[2019-03-29] MEDS ORDERED: METHYLERGONOVINE 0.2 MG INJ IM PRN (18:00)
[2019-03-29] MEDS ORDERED: OXYTOCIN 30 UNITS/LR 500 ML IV SCH ×2 (18:00)
[2019-03-29] MEDS ORDERED: OXYCODONE/ASPIRIN (4.88/325) TAB PO PRN (18:00)
[2019-03-30] MEDS: LACTATED RINGER'S 1,000 ML IV SCH ×2 (00:41→07:03)
--- NOTE | 2019-03-30 01:48 | PREAC ---
Date/Time of Note Date/Time of Note DATE: 03/30/19 TIME: 01:47 Anesthesia Eval and Record Evaluation Time Pre-Procedure Interview DATE: 03/30/19 TIME: :47 Age 39 Sex female NPO: 8 hrs Preoperative diagnosis or pain Planned procedure epidural Past Medical History Past Medical History: Includes : Gestational age: (41) Surgery & Anesthesia Issues No known issue Meds Anticoagulation: No Beta Ana Rosa within 24 hr: No Reason Beta Ana Rosa not given: Pt. not on B-Ana Rosa Reported Medications Cholecalciferol* (Vitamin D3*) 1,000 Unit Tablet, 1000 UNIT PO DAILY, TAB 03/29/19 Calcium Carbonate* (Calcium Carbonate*) 600 MG Ca Tab, 600 MG PO DAILY, TAB 03/29/19 Ferrous Gluconate (Iron) 256 Mg Tablet, 256 MG PO BID, TAB 03/29/19 Vits W-Ca,Fe,Fa(<1MG) () 1 Tab Tablet 11/14/10 Discontinued Reported Medications Ferrous Gluconate (Iron) 1 Tab Tablet 11/14/10 Discontinued Scripts Pantoprazole* (Pantoprazole*) 40 Mg Tablet.dr, 40 MG PO DAILY, #14 Prov:NOEL BATES MD 11/06/16 Hydrocodone Bit-Acetaminophen (Hydrocodone Bit-APAP) 5-325MG Tablet, 1 TAB PO Q6H PRN for PAIN LEVEL 6-10, #25 TAB Prov:REBECA ARCE MD 10/24/16 Current Medications Lactated Ringer's 1,000 ml @ 125 mls/hr Q8H IV Last administered on 03/30/19at 00:41; Admin Dose 125 MLS/HR; Start 03/29/19 at 17:34 Butorphanol Tartrate (Stadol) 1 mg Q2H PRN IV .PAIN SCALE 1-5; Start 03/29/19 at 18:00 Butorphanol Tartrate (Stadol) 2 mg Q2H PRN IV .PAIN SCALE 6-10; Start 03/29/19 at 18:00 Lidocaine (Xylocaine 1% (Mpf)) 30 ml ONCE PRN INJ .EPISIOTOMY; Start 03/29/19 at 18:00 Oxytocin/Lactated Ringer's 500 ml @ 500 mls/hr ONCE POST IV ; Start 03/29/19 at 18:00 Oxytocin/Lactated Ringer's 500 ml @ 125 mls/hr POST IV ; Start 03/29/19 at 18:00 Ibuprofen (Motrin) 600 mg ONCE PRN PO .PAIN 1-5; Start 03/29/19 at 18:00 Oxycodone/Aspirin (Percodan) 2 tab ONCE PRN PO .PAIN 6-10; Start 03/29/19 at 18:00 Lactated Ringer's 1,000 ml @ 2,000 mls/hr Q30M PRN IV .ANESTHESIA; Start at 17:34 Oxytocin/Lactated Ringer's 500 ml @ 0 mls/hr ONCE PRN IV .VAGINAL BLEEDING Last administered on 03/29/19at 22:35; Admin Dose 1 MLS/HR; Start 03/29/19 at 18:00 Methylergonovine Maleate (Methergine) 0.2 mg ONCE PRN IM .VAGINAL BLEEDING; Start 03/29/19 at 18:00 Carboprost Tromethamine (Hemabate) 250 mcg ONCE PRN IM .VAGINAL BLEEDING; Start 03/29/19 at 18:00 Misoprostol (Cytotec) 1,000 mcg ONCE PRN [place] .VAGINAL BLEEDING; Start 03/29/19 at 18:00 Oxytocin/Lactated Ringer's 500 ml @ 0 mls/hr FOR INDUCTION PRN IV INDUCTION; Start 03/29/19 at 18:00 Mineral Oil (Muri-Lube) 20 ml ONCE PRN TOP DELIVERY; Start 03/30/19 at 04:00; Stop 03/30/19 at 23:59 Meds reviewed: Yes Allergies Coded Allergies: No Known Allergy (Unverified , 03/29/19) Allergies Reviewed: Yes Labs/Studies Labs Reviewed: Reviewed by anesthesiologist Result Diagram: 03/29/19 1700 03/29/19 1700 Laboratory Tests 03/29/19 17:00 Blood Bank Test 03/29/19 17:00 Antibody Screen NEGATIVE Blood Type O POSITIVE Rh Immune Globulin Candidate NO test: Positive Studies: ECG (n/a) Pre-procedure Exam Last vitals Vital Signs Date Temp Pulse Resp B/P (MAP) Pulse Ox O2 O2 Flow FiO2 Time Delivery Rate 03/29/19 98.1 83 18 136/92 Room Air 16:00 (107) Airway: Adequate mouth opening Mallampati: Mallampati I Teeth: Normal Lung: Normal Heart: Normal ASA Physical Status ASA physical status: 2 Emergency: None Planned Anesthetic Neuraxial: Epidural Pre-operative Attestations Prior to commencing anesthesia and surgery, the patient was re-evaluated, there was verification of: *The patient's identity *The results of appropriate recent lab work and preoperative vital signs *The above evaluation not changing prior to induction *Anesthetic plan, risk benefits, alternative and complications discussed with patient/family; questions answered; patient/family understands, accepts and wishes to proceed. ROLA PHILLIPS MD Mar 30, 2019 01:48
[2019-03-30] MEDS ORDERED: FENTAnyl 2MCG/ML-ROPIV 0.2% 100 ML BAG EPI SCH (02:00)
[2019-03-30] MEDS ORDERED: NALOXONE (0.4 MG/ML) INJ IV PRN (02:00)
[2019-03-30] MEDS ORDERED: FENTAnyl 2MCG/ML-ROPIV 0.2% 100 ML ONE (02:03)
[2019-03-30] MEDS ORDERED: LIDOCAINE 1.5%/EPI MPF (SDV) 30 ML VIAL ONE (02:45)
[2019-03-30] MEDS ORDERED: ONDANSETRON 4 MG INJ ONE (03:01)
[2019-03-30] MEDS ORDERED: ONDANSETRON 4 MG INJ IV PRN (03:30)
[2019-03-30] MEDS ORDERED: MINERAL OIL LIGHT 10 ML VIAL TOP PRN (04:00)
--- NOTE | 2019-03-30 09:19 | LDN ---
Date/Time of Note Date/Time of Note DATE: 03/30/19 TIME: 09:13 Delivery Summary x2 relatively tight nuchal cord Weeks of Gestation 39w2d Placenta Delivered: Spontaneously, Intact & Complete Meconium: none Episiotomy: No Perineal laceration: 0 Anesthesia type: Epidural Estimated blood loss: 200 Sponge & Needle done & correct: Yes All needle counts correct: Yes Any foreign bodies felt in the: No Infant Delivery Information Sex Sex: female Apgars 1 Minute: 8 5 Minute: 9 Suctioning Nose & mouth suctioned at keiry: Yes Delee suction performed: Yes Umbilical Cord Umbilical cord with: 3 Vessels Cord presentations: nuchal cord Nuchal cord present X: 2 Cord Blood was obtained: Yes Mother & Baby Disposition Disposition cord blood clection for stem cell Mom & Baby to Maternity; Good: Yes Mom transferred to: Other Baby to NICU: No () MEET MORTENSEN MD Mar 30, 2019 09:18
--- NOTE | 2019-03-30 09:36 | HP ---
Date/Time of Note Date/Time of Note DATE: 03/30/19 TIME: 09:22 OB - History Hx of Present Free Text/Dictation 38 y.o A2 was admitted for IOL for macrosomia. VE ftp/long/-3 course was unevenful GBS neg admitted for IOL with pitocin. Chief Complaint: IOL Estimated Due Date: Mar 30, 2019 : 6 Para: 3 Spontaneous : 0 Therapeutic : 2 Care: Good Care Ultrasounds: Normal mid trimester US Obstetrical Complications: None Medical Complications: None Past Family/Social History * Past Medical, Surgical, Family and Obstetric Histories reviewed from chart. Blood Type: O+ Rubella: immune RPR/VDRL: Negative GBS Status: Negative HBsAG: Negative OB Admission Exam Vital Signs Vital Signs Vital Signs Date Temp Pulse Resp B/P (MAP) Pulse Ox O2 O2 Flow FiO2 Time Delivery Rate 03/29/19 98.1 83 18 136/92 Room Air 16:00 (107) Physical Exam HEENT: WNL Heart: Rhythm Normal Lungs: Clear, Equal Abdomen: WNL Extremities: Normal Reflexes: Normal Cervical Dilatation: Fingertip Effacement: 0% Station: -3 Membranes: Intact Amniotic Fluid: Unevaluable Heart Rate: 120's Accelerations: Accelerations Present Decelerations: No Decelerations Varibility: Moderate Contractions on Admission: >10 Minutes Apart Intensity: Mild Last 72 hours Lab Results CBC & BMP 03/29/19 17:00 Liver Function Test 03/29/19 17:00 Alanine Aminotransferase (ALT/SGPT) 18 Albumin 3.7 Alkaline Phosphatase 153 H Aspartate Amino Transf (AST/SGOT) 28 Direct Bilirubin 0.00 Total Protein 7.4 OB Assessment/Plan Reason for admission: induction of labor Other Assessment: IUP 39w2d macrosomia Plan: Induction Induction Method: per Pitocin Protocol MEET MORTENSEN MD Mar 30, 2019 09:33
[2019-03-30 10:15] VITALS: BP 140/85; PULSE 85; RESP 20
[2019-03-30] MEDS ORDERED: BENZOCAINE 20% 56 ML SPRAY TOP PRN (10:30)
[2019-03-30] MEDS ORDERED: LANOLIN HPA 1 PKT TOP PRN (10:30)
[2019-03-30] MEDS ORDERED: OXYCODONE/ASPIRIN (4.88/325) TAB PO PRN (10:30)
[2019-03-30] MEDS ORDERED: MISOPROSTOL 200 MCG TAB PR PRN (10:30)
[2019-03-30] MEDS ORDERED: OXYTOCIN 30 UNITS/LR 500 ML IV PRN (10:30)
[2019-03-30] MEDS ORDERED: ZOLPIDEM 5 MG TAB PO PRN (10:30)
[2019-03-30] MEDS ORDERED: METHYLERGONOVINE 0.2 MG INJ IM PRN (10:30)
[2019-03-30] MEDS ORDERED: WITCH HAZEL/GLYCERIN PAD PR PRN (10:30)
[2019-03-30] MEDS ORDERED: CARBOPROST 250 MCG INJ IM PRN (10:30)
[2019-03-30] MEDS: OXYCODONE/ASPIRIN (4.88/325) TAB PO PRN ×3 (10:34→21:33)
[2019-03-30 11:27] VITALS: BP 130/80; PULSE 78; RESP 20
[2019-03-30] MEDS: IBUPROFEN 600 MG TAB PO SCH ×2 (12:16→17:44)
[2019-03-30 16:13] VITALS: BP 122/68; PULSE 73; RESP 20
[2019-03-30 20:30] VITALS: BP 128/80; PULSE 71; RESP 18
[2019-03-30] MEDS: SENNA/DOCUSATE NA (8.6MG/50MG) TAB PO SCH (21:00)
[2019-03-31] VITALS: BP 126/82; PULSE 70; RESP 18
[2019-03-31] MEDS: IBUPROFEN 600 MG TAB PO SCH ×5 (00:15→23:30)
[2019-03-31] MEDS: OXYCODONE/ASPIRIN (4.88/325) TAB PO PRN ×3 (03:30→18:27)
[2019-03-31 04:00] VITALS: BP 137/78; PULSE 74; RESP 20
--- NOTE | 2019-03-31 08:05 | PAC ---
Date/Time of Note Date/Time of Note DATE: 03/31/19 TIME: 08:05 Post-Anesthesia Notes Post-Anesthesia Note Last documented vital signs Vital Signs Date Temp Pulse Resp B/P (MAP) Pulse Ox O2 O2 Flow FiO2 Time Delivery Rate 03/31/19 98.0 74 20 137/78 99 Room Air 04:00 (97) Activity: WNL Respiratory function: WNL Cardiovascular function: WNL Mental status: Baseline Pain reasonably controlled: Yes Hydration appropriate: Yes Nausea/Vomiting absent: No ROLA PHILLIPS MD Mar 31, 2019 08:05
[2019-03-31 08:40] VITALS: BP 99/65; PULSE 70; RESP 17
[2019-03-31] MEDS: SENNA/DOCUSATE NA (8.6MG/50MG) TAB PO SCH ×2 (09:01→21:24)
[2019-03-31 15:17] VITALS: BP 131/83; PULSE 83; RESP 17
[2019-03-31 19:45] VITALS: BP 130/82; PULSE 84; RESP 19
[2019-04-01] MEDS: OXYCODONE/ASPIRIN (4.88/325) TAB PO PRN ×4 (00:18→19:32)
[2019-04-01 03:45] VITALS: BP 114/84; PULSE 75; RESP 19
[2019-04-01] MEDS: IBUPROFEN 600 MG TAB PO SCH ×3 (06:00→15:53)
[2019-04-01 08:00] VITALS: BP 127/70; PULSE 80; RESP 19
[2019-04-01] MEDS: SENNA/DOCUSATE NA (8.6MG/50MG) TAB PO SCH (08:40)
[2019-04-01] MEDS ORDERED: DIPHTH/TET/ACEL PERTUSS (ADULT) 0.5 ML VIAL IM* ONE (09:00)
[2019-04-01 16:00] VITALS: BP 136/78; PULSE 83; RESP 18
--- NOTE | 2019-04-01 19:29 | PD.PPDC ---
CATERPILLAR OPERATOR Discharge Instruction Diagnosis [id number] Final Diagnosis: [id number] s/p Condition [id number] Patient Condition: Miqyr9c Stable Diet Llqkx8Lh Diet: Ubezg4s Resume Regular Diet Activity/Restrictions [id number] Activity: Tzgie4r May Shower Eckoi1Pm Restrictions: Fjfgx7y No Sexual Activity Nothing in the Vagina No [place] No Tampons, douche Follow-up Follow-up with Physician: 6 Return to clinic for [id number] DIRECTOR OF BRAND MARKETING Instructions: Yfdkw7c Fever greater than 101 Chills Worsening abdominal pain Excessive Vaginal Bleeding More than 2 pads per hour Unable to tolerate diet [id number] OB Instructions: Xssbu4u Breast Tenderness Depression Blurried Vision Headache MEET MORTENSEN MD Apr 01, 2019 19:29
--- NOTE | 2019-04-01 19:31 | DS ---
Date/Time of Note Date/Time of Note DATE: 04/01/19 TIME: 19:30 Obstetrical Discharge Record Final Diagnosis Final Diagnosis: Term delivered Vaginal Delivery Obstetrical Delivery: Spontaneous Complications Induction: Yes Rupture of Membranes: No Condition on Discharge Physical Assessment Last Vitals: vss afebrile Voiding: Yes Bowel Movement: Yes Breast: Soft, non-tender Fundus: Firm Abdomen and Incision: soft nontender Calf Tenderness: No Patient Condition: Stable MEET MOTRENSEN MD Apr 01, 2019 19:31
--- NOTE | 2019-04-02 23:14 | DELSUM ---
Delivery Summary A-C Datetime Report Generated by CPN: 04/02/2019 23:14 DELIVERY PERSONNEL Ends Down Checker: Rashad, Stacey MATERNAL INFORMATION Delivery Anesthesia: Epidural Medications in Delivery: pitocin Delivery QBL (ml): 200 Placenta Cultured: No Maternal Complications: None LABOR SUMMARY EDC: 04/05/2019 00:00 No. Babies in Womb: 1 Attempted: No Labor Anesthesia: Epidural LABOR INFORMATION Reason for Induction: Other Reason for Induction- Other: scheduled Onset of Labor: 03/30/2019 02:33 Complete Dilatation: 03/30/2019 06:54 Oxytocin: Induction Group B Beta Strep: Negative Antibiotics # of Doses: 0 Steroids Given: None Reason Steroids Not Administered: Not Applicable MEMBRANES Membranes Rupture Method: Spontaneous Rupture of Membranes: 03/30/2019 06:54 Length of Rupture (hr): 1.40 Amniotic Fluid Color: Clear Amniotic Fluid Amount: Large Amniotic Fluid Odor: Normal STAGES OF LABOR Stage 1 hr: 4 Stage 1 min: 21 Stage 2 hr: 1 Stage 2 min: 24 Stage 3 hr: 0 Stage 3 min: 2 Total Time in Labor hr: 5 Total Time in Labor min: 47 VAGINAL DELIVERY Episiotomy: None Laceration Extension: N/A Laceration Type: None Laceration Repair: Not Applicable Initial Vag Sponge Count: 10 Final Vag Sponge Count: 10 Initial Vag Sharps Count: 1 Final Vag Sharps Count: 1 Sponge Count Correct: Yes; Vaginal Sweep Performed Sharps Count Correct: Yes BABY A INFORMATION Infant Delivery Date/Time: 03/30/2019 08:18 Method of Delivery: Vaginal Born in Route : No : N/A Forceps: N/A Vacuum Extraction: N/A Shoulder Dystocia : N/A SHOULDER DYSTOCIA BABY A Infant Delivery Date/Time: 03/30/2019 08:18 PRESENTATION/POSITION BABY A Presentation: Cephalic Cephalic Presentation: Vertex Vertex Position: Left Occipital Anterior Breech Presentation: N/A PLACENTA INFORMATION BABY A Placenta Delivery Time : 03/30/2019 08:20 Placenta Method of Delivery: Spontaneous Placenta Status: Delivered SCORES BABY A Heart Rate 1 min: >100 bpm Resp Effort 1 min: Good Cry Reflex Irritability 1 min: Cough/Sneeze/Pulls Away Muscle Tone 1 min: Active Motion Color 1 min: Blue/Pale Resuscitation Effort 1 min: Tactile Stimulation SCORE 1 MIN: 8 Heart Rate 5 min: >100 bpm Resp Effort 5 min: Good Cry Reflex Irritability 5 min: Cough/Sneeze/Pulls Away Muscle Tone 5 min: Active Motion Color 5 min: Body [place], Extremit Blue Resuscitation Effort 5 min: Tactile Stimulation SCORE 5 MIN: 9 INFANT INFORMATION BABY A Gestational Age at Delivery: 39.2 Gestational Status: Full Term- 39- 40.6 Weeks Infant Outcome : Liveborn Condition : Stable Sex: Female IDENTIFICATION/MEDS BABY A ID Band Number: [id number] ID Band Location: Right Leg; Left Arm Sensor Applied: Yes Sensor Number: [id number] Sensor Location : Cord Clamp Vitamin K Given : Not Given Erythromycin Given: Not Given WEIGHT/LENGTH BABY A Birthweight (gm): 4000 Infant Weight (lb): 8 Infant Weight (oz): 13 Infant Length (in): 21.00 Length (cm): 53.34 CORD INFORMATION BABY A No. Cord Vessels: 3 Nuchal Cord : Around Neck x2, Loose Cord Blood Taken: Yes Suction: Mouth; Nose ASSESSMENT BABY A Infant Complications: None Physical Findings at Delivery: Within Normal Limits Infant Respirations: Appears Normal Fitness Management Director/ALS Called : Yes Infant Care By: RT Transferred To: Remains with Mother
== END 2019-04-01 20:15 | disposition home or self-care (01) | DRG 807 ==
LOC: L-D 14:45 → PP1 03-30 09:52
PROVIDERS: ADMIT Obstetrics & Gynecology; ATTEND Obstetrics & Gynecology
PROC: 10E0XZZ Delivery of Products of Conception, External Approach (ICD-10-PCS; principal; 2019-03-30)
DX: O36.63X0 Maternal care for excessive fetal growth, third trimester, not applicable or unspecified (principal); Z37.0 Single live birth; O69.1XX0 Labor and delivery complicated by cord around neck, with compression, not applicable or unspecified; Z3A.39 39 weeks gestation of pregnancy; Z23 Encounter for immunization
CPT/HCPCS: 62322; 76815; 80053; 81003; 84560; 85025; 85610; 85730; 86592; 86850; 86900; 86901; 87086; 87340; 90715; 99464; J2405; J2590; J3010; J7120